=== PATIENT | male | born 1955 | race Caucasian/White ===

== ENCOUNTER 2018-05-07 09:04 | Inpatient (IN) | payer BC ==
[~2018-05-07] VITALS: Ht 188 cm; Wt 127.0 kg
[2018-05-07 09:19] VITALS: BP 151/97
[2018-05-07] MEDS ORDERED: CELEXA20 MG ORAL (09:24)
[2018-05-07] MEDS ORDERED: PROTONIX20 MG ORAL (09:24)
[2018-05-07] MEDS ORDERED: GABAPENTIN600 MG ORAL (09:24)
[2018-05-07] MEDS ORDERED: ASPIR 8181 MG ORAL (09:24)
[2018-05-07] MEDS ORDERED: METOPROLOL TART50 MG ORAL (09:24)
[2018-05-07] MEDS ORDERED: METFORMIN HCL1000 M1 ORAL (09:24)
[2018-05-07] MEDS ORDERED: AMLODIPINE BESY10 MG ORAL (09:24)
[2018-05-07] MEDS ORDERED: LISINOPRIL10 MG ORAL (09:24)
[2018-05-07] MEDS ORDERED: VITAMIN B-1100 MG ORAL (09:24)
[2018-05-07] MEDS ORDERED: IBUPROFEN600 MG ORAL (09:24)
[2018-05-07] MEDS ORDERED: DIPHENHYDRAMINE25 M1 ORAL (09:24)
[2018-05-07] MEDS ORDERED: MIRTAZAPINE15 M3 ORAL (09:24)
[2018-05-07] MEDS ORDERED: LIPITOR40 MG ORAL (09:24)
[2018-05-07] MEDS ORDERED: Nitroglycerin Subl 0.4mg tab SL PRN ×2 (09:30→11:45)
--- NOTE | 2018-05-07 09:32 | Emergency Room Report ---
History of Present Illness General Chief Complaint: Chest Pain Source: Patient Present Illness HPI 62 male c/o moderate to severe heavy substernal chest pressure basically all night~12-16 hours. This am also down left arm. Feels similar to [place] January 07, 2016 and pt. had CABG January 08, 2016. No significant cp since that time. Pt. has not been to [facility] in past. Currently in drug/alcohol rehab program. Meds: Metformin 1000 BID Amlodipine 10 daily Lipitor 40 daily Lisinopril 20 daily Metoprolol 25x3 BID Mirtazapine 15 qhs Pantoprazole 40 BID Aspirin 81 daily Citalopram 40 daily Gabapentin 600 qhs Benadryl 50 qhs Allergies: Coded Allergies: No Known Allergies (Unverified , 05/07/18) Nursing Documentation-[facility] Past Medical History: No History, Except For Hx Hypertension: Yes - high cholesterol Hx Diabetes: Yes Review of Systems Constitutional: Reports: no symptoms Eye: Reports: no symptoms ENT: Reports: no symptoms Respiratory: Reports: no symptoms Cardiovascular: Reports: see HPI, chest pain Gastrointestinal: Reports: no symptoms Genitourinary: Reports: no symptoms Musculoskeletal: Reports: no symptoms Skin: Reports: no symptoms Psychiatric: Reports: no symptoms Neurological: Reports: no symptoms Endocrine: Reports: no symptoms Hematologic/Lymphatic: Reports: no symptoms Allergic: Reports: no symptoms All Other Systems: negative except mentioned in HPI Physical Exam Vital Signs Date Time Temp Pulse Resp B/P (MAP) Pulse Ox O2 Delivery O2 Flow Rate FiO2 05/07/18 09:09 97.0 102 18 151/97 98 Room Air 97.0 Sp02 EP Interpretation: reviewed, normal General Appearance: normal inspection, no apparent distress, alert, GCS 15, moderate distress, obese Head: normocephalic, atraumatic Eyes: bilateral eye normal inspection, bilateral eye PERRL, bilateral eye EOMI ENT: normal ENT inspection, hearing grossly normal, normal pharynx, no angioedema, normal voice, moist mucus membranes Neck: normal inspection, full range of motion, supple, no meningismus, no bony tend Respiratory: normal inspection, lungs clear, normal breath sounds, no rhonchi, no respiratory distress, no retraction, no accessory muscle use, no wheezing Cardiovascular #1: normal inspection, regular rate, rhythm, no edema Gastrointestinal: normal inspection, normal bowel sounds, non tender, soft, no mass, non-distended Musculoskeletal: gait/station normal, normal range of motion Neurologic: normal inspection, alert, oriented x3, responsive, motor strength/ tone normal Psychiatric: normal inspection, judgement/insight normal, memory normal Suicide Risk Assessment: Suicidal Ideation: No Had intent to initiate attempt: No Pt's plan for suicide attempt: No Has means to complete attempt: No Skin: normal inspection, normal color, no rash, warm/dry Medical Decision Making Diagnostic Impression: Primary Impression: Chest pain ER Course 1030: no further cp at this time. Received one sl ntg., SBP ~100 after that. Medical Decision Making for Chest Pain This patient presents with signs and symptoms concerning for coronary ischemia. It is not possible to be 100% accurate about the etiology of the patient's chest pain at this time (after an ED evaluation.) The patient's YAQUELIN Score is: 4. The patient's HEART Score is: 5. YAQUELIN: age 65 years or older 0 at least 3 risk factors for coronary artery disease 1 prior coronary stenosis of 50% or more 1 ST-segment deviation on ECG at presentation 0 at least two anginal events in prior 24 hours 1 use of aspirin in the prior seven days 1 elevated serum cardiac biomarkers 0 HEART: (0-2 for five variables) History 2 EKG (ST depr = 1mm) 0 Age (45-65) 1 Risk Factors (1-2) 2 Troponin CRITICAL CARE NOTE: The patient was at risk for respiratory and cardiac failure and required aggressive intervention by me. Critical care time provided by me, excluding other separately billable procedures exceeded 35 minutes. This time included: Obtaining history from: patient, EMS, family, PMD Examination of the patient Development of treatment plan Ordering and reviewing diagnostic test results Discussion of treatment plan with advanced manufacturing consultant, PMD, patient, family Coordinating care with nursing and respiratory therapy Supervising IV medications Multiple reassessments Discussion with the admitting physician EKG Diagnostic Results EKG Time: 09:30 Rate: normal Rhythm: NSR ST Segments: no acute changes Other Impression NSR at 100, PRWP Rhythm Strip Diag. Results Rhythm Strip Time: 09:31 EP Interpretation: yes Rate: 101 Rhythm: NSR Chest X-Ray Diagnostic Results Chest X-Ray Diagnostic Results : Chest X-Ray Ordered: Yes # of Views/Limited/Complete: 1 View Indication: Chest Pain EP Interpretation: Yes Interpretation: no consolidation, no effusion, no pneumothorax, no acute cardiopulmonary disease Last Vital Signs Date Time Temp Pulse Resp B/P (MAP) Pulse Ox O2 Delivery O2 Flow Rate FiO2 05/07/18 09:09 97.0 102 18 151/97 98 Room Air 97.0 Disposition: ADMITTED INPATIENT Condition: Serious Pasquale Espinoza M.D. May 07, 2018 09:32
[2018-05-07] MEDS ORDERED: LORazepam Inj 2mg/ml 1ml IV ONE (09:45)
[2018-05-07 09:51] LABS: ANION GAP 9 mmol/L (5-15); BLOOD UREA NITROGEN 27 mg/dL (7-18); CALCIUM 9.9 MG/DL (8.5-10.1); CARBON DIOXIDE 25 MMOL/L (21-32); CHLORIDE 102 MMOL/L (98-107); CREATININE 1.1 MG/DL (0.55-1.30); POTASSIUM 4.9 MMOL/L (3.5-5.1); SODIUM 136 MMOL/L (136-145)
[2018-05-07 09:52] LABS: INR 0.9 (0.9-1.1)
[2018-05-07 10:02] LABS: ALANINE AMINOTRANSFERASE 42 U/L (12-78); ALBUMIN 4.3 G/DL (3.4-5.0); ALBUMIN/GLOBULIN RATIO 1.1 (1.0-2.7); ALKALINE PHOSPHATASE 86 U/L (46-116); ASPARTATE AMINO TRANSFERASE 18 U/L (15-37); BILIRUBIN,TOTAL 0.4 MG/DL (0.2-1.0)
[2018-05-07 10:04] LABS: BASOPHILS % (AUTO) 1.1 % (0.0-2.0); EOSINOPHILS % (AUTO) 1.7 % (0.0-3.0); HEMATOCRIT 47.1 % (42.0-52.0); HEMOGLOBIN 15.8 G/DL (14.2-18.0); LYMPHOCYTES % (AUTO) 31.3 % (20.0-45.0); MEAN CORPUSCULAR VOLUME 91 FL (80-99); MONOCYTES % (AUTO) 8.7 % (1.0-10.0); NEUTROPHILS % (AUTO) 57.2 % (45.0-75.0); PLATELET COUNT 326 K/UL (150-450); RED BLOOD COUNT 5.17 M/UL (4.70-6.10); RED CELL DISTRIBUTION WIDTH 10.7 % (11.6-14.8)
[2018-05-07 10:09] LABS: APPEARANCE,URINE CLEAR; BILIRUBIN, URINE NEGATIVE (NEGATIVE); COLOR,URINE PALE YELLOW; GLUCOSE, URINE (UA) 4+ (NEGATIVE); KETONES,URINE NEGATIVE (NEGATIVE); LEUKOCYTE ESTERASE ,URINE NEGATIVE (NEGATIVE); NITRITE,URINE NEGATIVE (NEGATIVE); PH,URINE 5 (4.5-8.0); PROTEIN,URINE NEGATIVE (NEGATIVE); UROBILINOGEN,URINE NORMAL MG/DL (0.0-1.0)
[2018-05-07] MEDS ORDERED: Morphine Sulfate 2mg/ml Inj IVP ONE (11:00)
[2018-05-07] MEDS ORDERED: Mylanta II UD 30ml ORAL ONE (11:00)
[2018-05-07] MEDS ORDERED: Lidocaine 2% Visc 15ml soln PO ONE (11:00)
--- NOTE | 2018-05-07 11:05 | Diagnostic Imaging Report ---
Indication: Chest pain Comparison: None A single view chest radiograph was obtained. Findings: No definite infiltrate or pulmonary vascular congestion identified. Sternotomy noted. The heart is enlarged. The aorta is mildly enlarged consistent with atherosclerotic vascular disease. The bones are osteopenic. Impression: No acute disease
[2018-05-07 11:25] VITALS: BP_SYST 104; BP_SYST 130; BP_DIAS 57; BP_DIAS 76
[2018-05-07] MEDS ORDERED: dilTIAZem HCl 25mg/5ml Inj IV PRN (11:45)
[2018-05-07] MEDS ORDERED: Albuterol/Ipratropium 3ml neb HHN PRN (11:45)
[2018-05-07] MEDS ORDERED: Ketorolac 30mg Inj IV PRN (11:45)
[2018-05-07] MEDS ORDERED: Enalaprilat 2.5mg/2ml Inj IV PRN (11:45)
[2018-05-07] MEDS ORDERED: Isovue-370 150ml vial INJ PRN (11:45)
[2018-05-07] MEDS ORDERED: Miralax 17gm pkt ORAL PRN (11:45)
--- NOTE | 2018-05-07 12:45 | Nephrology Progress Note ---
Assessment/Plan Plan [id number] full consult dictated Objective Objective Last 24 Hour Vital Signs Date Time Temp Pulse Resp B/P (MAP) Pulse Ox O2 Delivery O2 Flow Rate FiO2 05/07/18 11:37 98.7 05/07/18 11:25 98.7 89 15 130/76 97 Room Air 98.7 05/07/18 11:07 97.0 05/07/18 09:33 151/97 05/07/18 09:19 97.0 18 151/97 98 Room Air 97.0 05/07/18 09:19 102 18 Room Air 05/07/18 09:09 97.0 102 18 151/97 98 Room Air 97.0 Laboratory Tests 05/07/18 09:30: White Blood Count 9.0, Red Blood Count 5.17, Hemoglobin 15.8, Hematocrit 47.1, Mean Corpuscular Volume 91, Mean Corpuscular Hemoglobin 30.5, Mean Corpuscular Hemoglobin Concent 33.5, Red Cell Distribution Width 10.7L, Platelet Count 326, Mean Platelet Volume 5.6L, Neutrophils (%) (Auto) 57.2, Lymphocytes (%) (Auto) 31.3, Monocytes (%) (Auto) 8.7, Eosinophils (%) (Auto) 1.7, Basophils (%) (Auto ) 1.1, Prothrombin Time 9.7, Prothromb Time International Ratio 0.9, Sodium Level 136, Potassium Level 4.9, Chloride Level 102, Carbon Dioxide Level 25, Anion Gap 9, Blood Urea Nitrogen 27H, Creatinine 1.1, Estimat Glomerular Filtration Rate > 60, Glucose Level 163H, Calcium Level 9.9, Total Bilirubin 0.4 , Aspartate Amino Transf (AST/SGOT) 18, Alanine Aminotransferase (ALT/SGPT) 42, Alkaline Phosphatase 86, Troponin I 0.000, Pro-B-Type Natriuretic Peptide 60, Total Protein 8.2, Albumin 4.3, Globulin 3.9, Albumin/Globulin Ratio 1.1 05/07/18 10:00: Urine Color Pale yellow, Urine Appearance Clear, Urine pH 5, Urine Specific [place] 1.015, Urine Protein Negative, Urine Glucose (UA) 4+H, Urine Ketones Negative, Urine Blood Negative, Urine Nitrite Negative, Urine Bilirubin Negative , Urine Urobilinogen Normal, Urine Leukocyte Esterase Negative, Urine RBC 0, Urine WBC 0, Urine Squamous Epithelial Cells Occasional, Urine Bacteria None, Urine Opiates Screen Negative, Urine Barbiturates Screen Negative, Phencyclidine (PCP) Screen Negative, Urine Amphetamines Screen Negative, Urine Benzodiazepines Screen Negative, Urine Cocaine Screen Negative, Urine Marijuana (THC) Screen Negative Height (Feet): 6 Height (Inches): 2.00 Weight (Pounds): 280 Wendy Lu MD May 07, 2018 12:45
[2018-05-07] MEDS ORDERED: Aspirin EC 81mg tab ORAL SCH (13:00)
--- NOTE | 2018-05-07 13:01 | Consultation ---
History of Present Illness General Date patient seen: May 07, 2018 Chief Complaint: Chest Pain Present Illness HPI 62 male with hx of DM, CAD, CABG, ETOH abuse c/o moderate to severe heavy substernal chest pressure basically all night~12-16 hours. This am also down left arm.. Pt. has not been to [facility] in past. Currently in drug/alcohol rehab program. Pt is admitted to telemetry for ACS. Allergies: Coded Allergies: No Known Allergies (Unverified , 05/07/18) Medication History Scheduled Amlodipine Besylate* (Amlodipine Besylate*), 10 MG ORAL DAILY, (Reported) Aspirin* (Aspir 81*), 81 MG ORAL DAILY, (Reported) Atorvastatin Calcium* (Lipitor*), 40 MG ORAL BEDTIME, (Reported) Citalopram Hydrobromide* (Celexa*), 40 MG ORAL DAILY, (Reported) Gabapentin* (Gabapentin*), 600 MG ORAL HS, (Reported) Lisinopril* (Lisinopril*), 20 MG ORAL DAILY, (Reported) Metformin Hcl* (Metformin Hcl*), 1,000 MG ORAL BID, (Reported) Metoprolol Tartrate* (Metoprolol Tartrate*), 75 MG ORAL EVERY 12 HOURS, ( Reported) Mirtazapine* (Mirtazapine*), 15 MG ORAL BEDTIME, (Reported) Pantoprazole Sodium (Protonix), 40 MG ORAL EVERY 12 HOURS, (Reported) Thiamine Hcl* (Vitamin B-1*), 100 MG ORAL DAILY, (Reported) Scheduled PRN Diphenhydramine Hcl* (Diphenhydramine Hcl*), 50 MG ORAL HS PRN for Itching, ( Reported) Ibuprofen* (Motrin*), 200 MG ORAL Q6H PRN for For Pain, (Reported) Ibuprofen* (Motrin*), 800 MG ORAL Q6H PRN for For Pain, (Reported) Patient History Healthcare decision maker Resuscitation status Advanced Directive on File Past Medical/Surgical History Past Medical/Surgical History: (1) Hx of CABG (2) Hypertension (3) Diabetes mellitus Review of Systems All Other Systems: negative except mentioned in HPI Physical Exam General Appearance: WD/WN Lines, tubes and drains: peripheral HEENT: normocephalic, atraumatic Neck: non-tender, normal alignment Respiratory/Chest: chest wall non-tender, lungs clear Breasts: no masses Cardiovascular/Chest: normal peripheral pulses Abdomen: normal bowel sounds Extremities: normal range of motion Last 24 Hour Vital Signs Date Time Temp Pulse Resp B/P (MAP) Pulse Ox O2 Delivery O2 Flow Rate FiO2 05/07/18 11:37 98.7 05/07/18 11:25 98.7 89 15 130/76 97 Room Air 98.7 05/07/18 11:07 97.0 05/07/18 09:33 151/97 05/07/18 09:19 97.0 18 151/97 98 Room Air 97.0 05/07/18 09:19 102 18 Room Air 05/07/18 09:09 97.0 102 18 151/97 98 Room Air 97.0 Laboratory Tests Test 05/07/18 09:30 05/07/18 10:00 White Blood Count 9.0 K/UL (4.8-10.8) Red Blood Count 5.17 M/UL (4.70-6.10) Hemoglobin 15.8 G/DL (14.2-18.0) Hematocrit 47.1 % (42.0-52.0) Mean Corpuscular Volume 91 FL (80-99) Mean Corpuscular Hemoglobin 30.5 PG (27.0-31.0) Mean Corpuscular Hemoglobin Concent 33.5 G/DL (32.0-36.0) Red Cell Distribution Width 10.7 % (11.6-14.8) L Platelet Count 326 K/UL (150-450) Mean Platelet Volume 5.6 FL (6.5-10.1) L Neutrophils (%) (Auto) 57.2 % (45.0-75.0) Lymphocytes (%) (Auto) 31.3 % (20.0-45.0) Monocytes (%) (Auto) 8.7 % (1.0-10.0) Eosinophils (%) (Auto) 1.7 % (0.0-3.0) Basophils (%) (Auto) 1.1 % (0.0-2.0) Prothrombin Time 9.7 SEC (9.30-11.50) Prothromb Time International Ratio 0.9 (0.9-1.1) Sodium Level 136 MMOL/L (136-145) Potassium Level 4.9 MMOL/L (3.5-5.1) Chloride Level 102 MMOL/L (98-107) Carbon Dioxide Level 25 MMOL/L (21-32) Anion Gap 9 mmol/L (5-15) Blood Urea Nitrogen 27 mg/dL (7-18) H Creatinine 1.1 MG/DL (0.55-1.30) Estimat Glomerular Filtration Rate > 60 mL/min (>60) Glucose Level 163 MG/DL (74-106) H Calcium Level 9.9 MG/DL (8.5-10.1) Total Bilirubin 0.4 MG/DL (0.2-1.0) Aspartate Amino Transf (AST/SGOT) 18 U/L (15-37) Alanine Aminotransferase (ALT/SGPT) 42 U/L (12-78) Alkaline Phosphatase 86 U/L (46-116) Troponin I 0.000 ng/mL (0.000-0.056) Pro-B-Type Natriuretic Peptide 60 pg/mL (0-125) Total Protein 8.2 G/DL (6.4-8.2) Albumin 4.3 G/DL (3.4-5.0) Globulin 3.9 g/dL Albumin/Globulin Ratio 1.1 (1.0-2.7) Urine Color Pale yellow Urine Appearance Clear Urine pH 5 (4.5-8.0) Urine Specific [place] 1.015 (1.005-1.035) Urine Protein Negative (NEGATIVE) Urine Glucose (UA) 4+ (NEGATIVE) H Urine Ketones Negative (NEGATIVE) Urine Blood Negative (NEGATIVE) Urine Nitrite Negative (NEGATIVE) Urine Bilirubin Negative (NEGATIVE) Urine Urobilinogen Normal MG/DL (0.0-1.0) Urine Leukocyte Esterase Negative (NEGATIVE) Urine RBC 0 /HPF (0 - 0) Urine WBC 0 /HPF (0 - 0) Urine Squamous Epithelial Cells Occasional /LPF Urine Bacteria None /HPF (NONE) Urine Opiates Screen Negative (NEGATIVE) Urine Barbiturates Screen Negative (NEGATIVE) Phencyclidine (PCP) Screen Negative (NEGATIVE) Urine Amphetamines Screen Negative (NEGATIVE) Urine Benzodiazepines Screen Negative (NEGATIVE) Urine Cocaine Screen Negative (NEGATIVE) Urine Marijuana (THC) Screen Negative (NEGATIVE) Height (Feet): 6 Height (Inches): 2.00 Weight (Pounds): 280 Medications Current Medications Medications (Trade) Dose Ordered Sig/[place] Route PRN Reason Start Time Stop Time Status Last Admin Dose Admin Acetaminophen (Tylenol) 650 mg Q4H PRN ORAL FEVER 05/07/18 11:45 06/06/18 11:44 Albuterol/ Ipratropium (Albuterol/ Ipratropium) 3 ml Q4H PRN HHN Shortness of Breath 05/07/18 11:45 05/12/18 11:44 Amlodipine Besylate (Norvasc) 10 mg DAILY ORAL 05/08/18 09:00 06/07/18 08:59 Aspirin (Ecotrin) 81 mg DAILY ORAL 05/08/18 09:00 06/07/18 08:59 Aspirin (Ecotrin) 81 mg ONCE ORAL 05/07/18 13:00 05/07/18 14:00 05/07/18 12:55 Atorvastatin Calcium (Lipitor) 40 mg BEDTIME ORAL 05/07/18 21:00 06/06/18 20:59 Citalopram Hydrobromide (celeXA) 40 mg DAILY ORAL 05/08/18 09:00 06/07/18 08:59 Dextrose (Dextrose 50%) 25 ml STAT PRN IV Hypoglycemia 05/07/18 11:45 06/06/18 11:44 Dextrose (Dextrose 50%) 50 ml STAT PRN IV Hypoglycemia 05/07/18 11:45 06/06/18 11:44 Diltiazem HCl (Cardizem) 10 mg Q1H PRN IV heart rate more than 120, 05/07/18 11:45 06/06/18 11:44 Enalaprilat (Vasotec) 2.5 mg Q6H PRN IV sbp more than 160 05/07/18 11:45 06/06/18 11:44 Gabapentin (Neurontin) 600 mg EVERY 8 HOURS ORAL 05/07/18 14:00 06/06/18 13:59 Heparin Sodium (Porcine) (Heparin 5000 units/ml) 5,000 units EVERY 8 HOURS SUBQ 05/07/18 14:00 06/06/18 13:59 Insulin Aspart (NovoLOG) BEFORE MEALS AND HS SUBQ 05/07/18 16:30 06/06/18 16:29 Iopamidol (Isovue-370 150ml) 150 ml NOW PRN INJ Radiology Procedure 05/07/18 11:45 05/09/18 11:42 Ketorolac Tromethamine (Toradol 30mg) 30 mg Q6H PRN IV moderate pain ( 4-6) 05/07/18 11:45 05/12/18 11:44 Lisinopril (Prinivil) 20 mg DAILY ORAL 05/08/18 09:00 06/07/18 08:59 Metoprolol Tartrate (Lopressor) 75 mg EVERY 12 HOURS ORAL 05/07/18 21:00 06/06/18 20:59 Mirtazapine (Remeron) 15 mg BEDTIME ORAL 05/07/18 21:00 06/06/18 20:59 Morphine Sulfate (Morphine Sulfate) 2 mg Q4H PRN IVP severe Pain (Pain Scale 7-10) 05/07/18 11:45 05/14/18 11:44 Nitroglycerin (Ntg) 0.4 mg Q5M PRN SL Prn Chest Pain 05/07/18 11:45 06/06/18 11:44 Ondansetron HCl (Zofran) 4 mg Q6H PRN IVP Nausea & Vomiting 05/07/18 11:45 06/06/18 11:44 Pantoprazole (Protonix) 40 mg DAILY ORAL 05/08/18 09:00 06/07/18 08:59 Polyethylene Glycol (Miralax) 17 gm DAILYPRN PRN ORAL Constipation 05/07/18 11:45 06/06/18 11:44 Temazepam (Restoril) 15 mg HSPRN PRN ORAL Insomnia 05/07/18 11:45 05/14/18 11:44 Assessment/Plan Problem List: (1) ACS (acute coronary syndrome) ICD Codes: I24.9 - Acute ischemic heart disease, unspecified SNOMED: 388325696 (2) Costochondritis ICD Codes: M94.0 - Chondrocostal junction syndrome [[place]] SNOMED: 14692407 (3) Hypertension ICD Codes: I10 - Essential (primary) hypertension SNOMED: 18737052 (4) Hx of CABG ICD Codes: Z95.1 - Presence of aortocoronary bypass graft SNOMED: 238518674, 180182148 (5) Diabetes mellitus ICD Codes: E11.9 - Type 2 diabetes mellitus without complications SNOMED: 07788442 Assessment/Plan serial ekg, troponin, Echo sliding scale diabetic diet Cardio evaluation. Per Turcios MD May 07, 2018 13:01
[2018-05-07 13:30] VITALS: BP 132/80
[2018-05-07 13:47] VITALS: BP 116/76
--- NOTE | 2018-05-07 13:48 | Diagnostic Imaging Report ---
Indication: Chest pain Technique: Continuous helical transaxial imaging of the chest was obtained from the thoracic inlet to the upper abdomen during rapid intravenous contrast administration. Arterial phase of enhancement obtained. Coronal 2-D reformats were also obtained and maximum intensity projection images in multiple planes. Study obtained in a Siemens sensation [address] Automatic Exposure Control was utilized. Total Dose length Product (DLP): 1464.[address] Dose Index Volume (CTDIvol): 35.35 mGy Comparison: None Findings: The pulmonary artery is well opacified and shows no filling defects. There is no adenopathy, pleural or pericardial effusions are identified. There is no aortic dissection or aneurysm identified within the chest. The lungs show mild posterior basilar reticulation likely atelectasis. Visualized part of the upper abdomen is unremarkable. Impression: Negative CTA of the chest The CT scanner at [facility] is accredited by the [employer] and the scans are performed using dose optimization techniques as appropriate to a performed exam including Automatic Exposure control.
[2018-05-07] MEDS: Heparin 5000 units/ml inj SUBQ SCH ×2 (14:09→21:39)
[2018-05-07] MEDS: Morphine Sulfate 2mg/ml Inj IVP PRN ×3 (14:09→23:08)
--- NOTE | 2018-05-07 16:04 | Cardiology Report ---
APPROVED REPORT EXAM: Two-dimensional and M-mode echocardiogram with Doppler and color Doppler. INDICATION LV FUNCTION M-Mode DIMENSIONS IVSd1.3 (0.7-1.1cm)Left Atrium (MM)4.0 (1.6-4.0cm) LVDd2.4 (3.5-5.6cm)Aortic Root3.6 (2.0-3.7cm) PWd1.1 (0.7-1.1cm)Aortic Cusp Exc.2.0 (1.5-2.0cm) IVSs1.5 cm LVDs1.7 (2.5-4.0cm) PWs1.6 cm Technically difficult study due to poor acoustical windows . Normal left ventricular chamber size and LV systolic function to extent visualized.This study precludes full analysis of segmental wall motion. Left ventricular ejection fraction estimated to be 55%. No evidence of left ventricular hypertrophy. No evidence of pericardial effusion. All other cardiac chamber sizes are within normal limits. Focal aortic valve sclerosis with adequate cusp excursion. Thickened mitral valve leaflets with normal excursion. Mitral annulus and aortic root calcification. Pulmonic valve not well visualized. Normal tricuspid valve structure. IVC at normal size with physiologic collapse . A color flow and spectral Doppler study was performed and revealed: No aortic regurgitation. Trace mitral regurgitation. Normal left ventricular diastolic function. Trace tricuspid regurgitation. Trace pulmonic regurgitation present .
[2018-05-07] MEDS: NovoLOG Insulin Flexpen SUBQ SCH ×2 (16:34→20:54)
[2018-05-07] MEDS: LORazepam Inj 2mg/ml 1ml IV PRN ×2 (17:14→21:40)
[2018-05-07 20:00] VITALS: BP 107/67
--- NOTE | 2018-05-07 20:15 | Consultation ---
DATE OF CONSULTATION: 05/07/2018 NEPHROLOGY CONSULTATION CONSULTING PHYSICIAN: Wendy Lu M.D. REFERRING PHYSICIAN: Elliot Moran D.O. REASON FOR CONSULTATION: Abnormal electrolyte and possible diabetic nephropathy. HISTORY OF PRESENT ILLNESS: The patient is a 62-year-old, male with past medical history significant for history of diabetes, hypertension, history of diabetic neuropathy, history of CABG, history of OR, history of ETOH dependence. Apparently, the patient was at rehabilitation center while lying down, he started having stabbing chest pain, which was described as 10/10, was associated with nausea, vomiting, shortness of breath and diaphoresis. The patient last time that he saw his primary elevator inspector was in 2015 when he had CABG. The patient was brought into emergency room. In the ER, the patient was planned to be get admitted in the hospital. I was called for management of renal disease and electrolyte imbalance. PAST MEDICAL HISTORY: As mentioned above including 1. History of dyslipidemia. 2. Hypertension. 3. Diabetes. 4. Diabetic neuropathy. 5. CABG. 6. History of CAD. MEDICATIONS: Past medications at home are including 1. Metformin 1000 mg p.o. daily. 2. Amlodipine 10 mg p.o. daily. 3. Lipitor 40 mg p.o. daily. 4. Lisinopril 20 mg daily. 5. Metoprolol 25 mg p.o. b.i.d. 6. Mirtazapine 15 mg p.o. daily. 7. Protonix 40 mg b.i.d. 8. Aspirin 81 mg p.o. daily. 9. Gabapentin 600 mg p.o. at bedtime. 10. Benadryl 50 mg daily. ALLERGIES: No known drug allergies. SOCIAL HISTORY: Alcohol about 60 days ago, quit smoking many years ago. Denied any history of current tobacco, alcohol, or drug use. He is currently at rehabilitation [place]. He is originally from [place]. REVIEW OF SYSTEMS: GENERAL: He complained of generalized weakness. Denied any fever, chills, or night sweats. HEAD AND NECK: Denies any dysphagia, odynophagia, blurry vision, headache, or neck stiffness. PULMONARY: Mild shortness of breath. No cough or sputum. CARDIOVASCULAR: As mentioned in history of present illness. GASTROINTESTINAL: Complained of one nausea and vomiting in the morning. Denies any dysuria, frequency or hematuria. PHYSICAL EXAMINATION: VITAL SIGNS: The patient has temperature of 98 degrees, blood pressure of 150/97, pulse rate of 102, respiratory rate of 18. HEAD AND NECK: No JVP. No LAD. No thyromegaly. Extraocular movement intact. Pupils are reactive to light and accommodation. LUNGS: Clear to auscultation. CARDIAC: Regular rate and rhythm. S1 and S2. No murmur. No rub. ABDOMEN: Soft, nontender, and nondistended. EXTREMITIES: Trace edema. No clubbing or cyanosis. LABORATORY AND DIAGNOSTIC DATA: Sodium 136, potassium 4.9, chloride 102, bicarbonate 25, BUN of 27, creatinine of 1.1, and glucose of 163. Calcium of 9.9. AST of 18, ALT of 42, and alkaline phosphatase of 86. Troponin is negative. BNP is 60. Albumin of 4.3. CBC revealed WBC count of 9, hemoglobin of 15.8, hematocrit of 47 and platelet count of 326. PT, PTT and INR within normal limits. UA revealed specific gravity of 1.015, glucose 4+, no wbc's, and no rbc's. Urine toxicology was completely negative. ASSESSMENT: 1. Prerenal azotemia and dehydration. 2. Rule out diabetic nephropathy, which is unlikely since the patient does not have any protein in the urine. 3. Uncontrolled diabetes. 4. Acute coronary syndrome. 5. History of CABG. 6. Uncontrolled hypertension. PLAN: Plan for the patient to obtain a random urine protein creatinine ratio to calculate the proteinuria. Check the microalbumin level. Check the A1c, recommended for this patient is 6 to 7. Avoid any other nephrotoxics. Replace electrolytes as needed. I would like to thank, Dr. Elliot Moran, for allowing me to participate in the care of this patient. Wendy Lu M.D. DR: MARIE JOB#: [id number] CC:
[2018-05-07] MEDS: Atorvastatin 20mg tab ORAL SCH (20:50)
[2018-05-07] MEDS: Metoprolol Tartrate 50mg tab ORAL SCH (20:51)
--- NOTE | 2018-05-07 22:00 | History and Physical Report ---
DATE OF ADMISSION: 05/07/2018 TIME: 2 p.m. TMR TEACHER: 1. Per Turcios M.D. 2. Enrico Hernandez M.D. 3. Wendy Lu M.D. CHIEF COMPLAINT: Chest pain, shortness of breath, and hypertensive urgency. BRIEF HISTORY: This is a 62-year-old male, who lives at home, actually traveling in to [place] recently, had some chest pain yesterday, substernal, no radiation, and sharp . The patient is slightly short of breath, but no loss of consciousness. The patient came to [facility], diagnosed with the above, and admitted to telemetry for further care. Currently, calm in bed, slight chest pain, slight shortness of breath. No complaint. PAST MEDICAL HISTORY: Hypertension, diabetes, and obesity. PAST SURGICAL HISTORY: Coronary artery bypass graft. MEDICATIONS: Include Norvasc, Ecotrin, Celexa, Prinivil, Protonix, Lipitor, Lopressor, Remeron, NovoLog, Neurontin, albuterol, ketorolac, and Zofran. ALLERGIES: Denies. SOCIAL HISTORY: Positive smoking. Positive alcohol. No intravenous drug abuse. FAMILY HISTORY: Noncontributory. REVIEW OF SYSTEMS: Slight chest pain. Slight shortness of breath. No nausea, vomiting, or diarrhea. PHYSICAL EXAMINATION: GENERAL: Slightly anxious in bed, oriented x3, no acute distress. VITAL SIGNS: Temperature is 97 degrees, pulse 89, respirations 20, and blood pressure 116/76. CARDIOVASCULAR: No murmur. LUNGS: [place] and clear. ABDOMEN: Bowel sounds positive. Nontender and nondistended. EXTREMITIES: Show no cyanosis, clubbing, or edema. NEUROLOGIC: The patient moves all extremities, slightly weak. LABORATORY AND DIAGNOSTIC DATA: CBC is normal. BMP show BUN 27, glucose 163, and INR is 0.9. Urine tox is negative. Urinalysis show 4+ glucose. ASSESSMENT: 1. Chest pain. 2. Hypertensive urgency. 3. Diabetes. 4. Obesity. 5. Dehydration. 6. Shortness of breath. PLAN: 1. O2 and pulmonary treatment. 2. Blood pressure and blood sugar control. 3. Pain control. 4. Cardiology followup. 5. Resume home medications. 6. CBC and BMP in the morning. 7. Dr. Turcios, Dr. Hernandez, and Dr. Lu to consult. Elliot Moran D.O. DR: JAZLYN JOB#: [id number] CC:
[2018-05-08] VITALS: BP 105/64
[2018-05-08 04:00] VITALS: BP 100/53
[2018-05-08] MEDS: Morphine Sulfate 2mg/ml Inj IVP PRN ×3 (06:24→17:58)
[2018-05-08] MEDS: Heparin 5000 units/ml inj SUBQ SCH ×3 (06:26→21:34)
[2018-05-08] MEDS: NovoLOG Insulin Flexpen SUBQ SCH ×4 (06:27→21:03)
[2018-05-08 08:00] VITALS: BP 110/75
[2018-05-08] MEDS ORDERED: Metoprolol 25mg tab ONE (08:37)
[2018-05-08 08:59] LABS: BASOPHILS % (AUTO) 1.1 % (0.0-2.0); EOSINOPHILS % (AUTO) 3.4 % (0.0-3.0); HEMATOCRIT 44.6 % (42.0-52.0); HEMOGLOBIN 15.1 G/DL (14.2-18.0); LYMPHOCYTES % (AUTO) 36.6 % (20.0-45.0); MEAN CORPUSCULAR VOLUME 91 FL (80-99); MONOCYTES % (AUTO) 6.9 % (1.0-10.0); NEUTROPHILS % (AUTO) 52.1 % (45.0-75.0); PLATELET COUNT 293 K/UL (150-450); RED BLOOD COUNT 4.91 M/UL (4.70-6.10); RED CELL DISTRIBUTION WIDTH 10.8 % (11.6-14.8); WHITE BLOOD COUNT 8.7 K/UL (4.8-10.8)
[2018-05-08] MEDS ORDERED: Lisinopril 20mg tab ORAL SCH (09:00)
[2018-05-08] MEDS: Metoprolol Tartrate 50mg tab ORAL SCH (09:00)
[2018-05-08] MEDS: Citalopram Hydrobromide 10mg Tab ORAL SCH (09:00)
[2018-05-08] MEDS ORDERED: Aspirin Baby 81mg ORAL SCH (09:00)
[2018-05-08] MEDS: Aspirin EC 81mg tab ORAL SCH (09:01)
[2018-05-08] MEDS: LORazepam Inj 2mg/ml 1ml IV PRN ×3 (09:14→21:05)
[2018-05-08 09:20] LABS: ANION GAP 6 mmol/L (5-15); BLOOD UREA NITROGEN 24 mg/dL (7-18); CALCIUM 9.5 MG/DL (8.5-10.1); CARBON DIOXIDE 26 MMOL/L (21-32); CHLORIDE 103 MMOL/L (98-107); CREATININE 1.1 MG/DL (0.55-1.30); POTASSIUM 4.9 MMOL/L (3.5-5.1); SODIUM 135 MMOL/L (136-145)
[2018-05-08 09:32] LABS: CHOLESTEROL 94 MG/DL (< 200); HDL CHOLESTEROL 39 MG/DL (40-60); TRIGLYCERIDES 97 MG/DL (30-150)
--- NOTE | 2018-05-08 10:17 | Nephrology Progress Note ---
Assessment/Plan Assessment 1. Prerenal azotemia and dehydration. 2. Rule out diabetic nephropathy, which is unlikely since the patient does not have any protein in the urine. 3. Uncontrolled diabetes. 4. Acute coronary syndrome. 5. History of CABG. 6. Uncontrolled hypertension. Plan continue current medication monitoring renal function avoid NSAID replace electrolyte as need it Subjective Constitutional: Reports: malaise, weakness HEENT: Reports: no symptoms Genitourinary: Reports: no symptoms Neurologic/Psychiatric: Reports: no symptoms Subjective continue to have CP 04/18 ,radiate to left arm ,and no relieving factor Objective Objective Last 24 Hour Vital Signs Date Time Temp Pulse Resp B/P (MAP) Pulse Ox O2 Delivery O2 Flow Rate FiO2 05/08/18 09:01 110/75 05/08/18 09:01 71 110/75 05/08/18 09:00 71 110/75 05/08/18 08:00 97.1 71 20 110/75 (87) 95 97.1 05/08/18 04:00 68 05/08/18 04:00 97.0 68 20 100/53 (69) 95 97.0 05/08/18 00:00 67 05/08/18 00:00 97.0 71 20 105/64 (78) 95 97.0 05/07/18 21:00 Room Air 05/07/18 20:51 84 113/69 05/07/18 20:00 88 05/07/18 20:00 97.7 85 20 107/67 (80) 97 97.7 05/07/18 20:00 87 20 Room Air 05/07/18 19:10 97.7 05/07/18 18:40 97.7 05/07/18 15:16 83 05/07/18 14:09 97.7 05/07/18 13:53 Room Air 05/07/18 13:47 97.7 89 20 116/76 (89) 93 97.7 05/07/18 13:30 98.5 75 20 132/80 98 Room Air 98.7 05/07/18 13:30 98.5 75 20 132/80 98 Room Air 98.5 05/07/18 11:37 98.7 05/07/18 11:25 98.7 89 15 130/76 97 Room Air 98.7 05/07/18 11:07 97.0 Intake and Output 05/07/18 05/08/18 19:00 07:00 Intake Total 480 ml 500 ml Balance 480 ml 500 ml Intake Oral 480 ml 500 ml # Voids 2 Laboratory Tests 05/08/18 08:40: White Blood Count 8.7, Red Blood Count 4.91, Hemoglobin 15.1, Hematocrit 44.6, Mean Corpuscular Volume 91, Mean Corpuscular Hemoglobin 30.7, Mean Corpuscular Hemoglobin Concent 33.8, Red Cell Distribution Width 10.8L, Platelet Count 293, Mean Platelet Volume 6.2L, Neutrophils (%) (Auto) 52.1, Lymphocytes (%) (Auto) 36.6, Monocytes (%) (Auto) 6.9, Eosinophils (%) (Auto) 3.4H, Basophils (%) (Auto ) 1.1, Prothrombin Time 10.2, Prothromb Time International Ratio 1.0, Activated Partial Thromboplast Time 28, Sodium Level 135L, Potassium Level 4.9, Chloride Level 103, Carbon Dioxide Level 26, Anion Gap 6, Blood Urea Nitrogen 24H, Creatinine 1.1, Estimat Glomerular Filtration Rate > 60, Glucose Level 236H, Calcium Level 9.5, Troponin I 0.000, C-Reactive Protein, Quantitative < 0.4, Triglycerides Level 97, Cholesterol Level 94, LDL Cholesterol 45, HDL Cholesterol 39L, Cholesterol/HDL Ratio 2.4L, Thyroid Stimulating Hormone (TSH) 2.068 Height (Feet): 6 Height (Inches): 2.00 Weight (Pounds): 280 Objective HEAD AND NECK: No JVP. No LAD. No thyromegaly. Extraocular movement intact. Pupils are reactive to light and accommodation. LUNGS: Clear to auscultation. CARDIAC: Regular rate and rhythm. S1 and S2. No murmur. No rub. ABDOMEN: Soft, nontender, and nondistended. EXTREMITIES: Trace edema. No clubbing or cyanosis. Wendy Lu MD May 08, 2018 10:17
[2018-05-08 12:00] VITALS: BP 117/64
--- NOTE | 2018-05-08 13:10 | Pulmonology Progress Note ---
Assessment/Plan Problems: (1) ACS (acute coronary syndrome) (2) Costochondritis (3) Hypertension (4) Hx of CABG (5) Diabetes mellitus Assessment/Plan f/u troponin, ekg echocardiogram awaiting cardiology consult f/u electrolytes, renal evaluation in process sliding scale dvt prophylaxis. Subjective ROS Limited/Unobtainable: No Constitutional: Reports: no symptoms HEENT: Repors: no symptoms Respiratory: Reports: no symptoms Allergies: Coded Allergies: No Known Allergies (Unverified , 05/07/18) Objective Last 24 Hour Vital Signs Date Time Temp Pulse Resp B/P (MAP) Pulse Ox O2 Delivery O2 Flow Rate FiO2 05/08/18 09:01 110/75 05/08/18 09:01 71 110/75 05/08/18 09:00 71 110/75 05/08/18 09:00 Room Air 05/08/18 08:00 97.1 71 20 110/75 (87) 95 97.1 05/08/18 04:00 68 05/08/18 04:00 97.0 68 20 100/53 (69) 95 97.0 05/08/18 00:00 67 05/08/18 00:00 97.0 71 20 105/64 (78) 95 97.0 05/07/18 21:00 Room Air 05/07/18 20:51 84 113/69 05/07/18 20:00 88 05/07/18 20:00 97.7 85 20 107/67 (80) 97 97.7 05/07/18 20:00 87 20 Room Air 05/07/18 19:10 97.7 05/07/18 18:40 97.7 05/07/18 15:16 83 05/07/18 14:09 97.7 05/07/18 13:53 Room Air 05/07/18 13:47 97.7 89 20 116/76 (89) 93 97.7 05/07/18 13:30 98.5 75 20 132/80 98 Room Air 98.7 05/07/18 13:30 98.5 75 20 132/80 98 Room Air 98.5 Intake and Output 05/07/18 05/08/18 19:00 07:00 Intake Total 480 ml 500 ml Balance 480 ml 500 ml Intake Oral 480 ml 500 ml # Voids 2 General Appearance: WD/WN HEENT: normocephalic, atraumatic Respiratory/Chest: chest wall non-tender, lungs clear Cardiovascular: normal peripheral pulses, regular rhythm Abdomen: normal bowel sounds, non distended Extremities: no cyanosis 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 Laboratory Tests 05/08/18 08:40: White Blood Count 8.7, Red Blood Count 4.91, Hemoglobin 15.1, Hematocrit 44.6, Mean Corpuscular Volume 91, Mean Corpuscular Hemoglobin 30.7, Mean Corpuscular Hemoglobin Concent 33.8, Red Cell Distribution Width 10.8L, Platelet Count 293, Mean Platelet Volume 6.2L, Neutrophils (%) (Auto) 52.1, Lymphocytes (%) (Auto) 36.6, Monocytes (%) (Auto) 6.9, Eosinophils (%) (Auto) 3.4H, Basophils (%) (Auto ) 1.1, Prothrombin Time 10.2, Prothromb Time International Ratio 1.0, Activated Partial Thromboplast Time 28, Sodium Level 135L, Potassium Level 4.9, Chloride Level 103, Carbon Dioxide Level 26, Anion Gap 6, Blood Urea Nitrogen 24H, Creatinine 1.1, Estimat Glomerular Filtration Rate > 60, Glucose Level 236H, Calcium Level 9.5, Troponin I 0.000, C-Reactive Protein, Quantitative < 0.4, Triglycerides Level 97, Cholesterol Level 94, LDL Cholesterol 45, HDL Cholesterol 39L, Cholesterol/HDL Ratio 2.4L, Thyroid Stimulating Hormone (TSH) 2.068 Current Medications Medications (Trade) Dose Ordered Sig/Wilmar Route PRN Reason Start Time Stop Time Status Last Admin Dose Admin Acetaminophen (Tylenol) 650 mg Q4H PRN ORAL FEVER 05/07/18 11:45 06/06/18 11:44 Albuterol/ Ipratropium (Albuterol/ Ipratropium) 3 ml Q4H PRN HHN Shortness of Breath 05/07/18 11:45 05/12/18 11:44 Amlodipine Besylate (Norvasc) 10 mg DAILY ORAL 05/08/18 09:00 06/07/18 08:59 05/08/18 09:01 Aspirin (Ecotrin) 81 mg DAILY ORAL 05/08/18 09:00 06/07/18 08:59 05/08/18 09:01 Atorvastatin Calcium (Lipitor) 40 mg BEDTIME ORAL 05/07/18 21:00 06/06/18 20:59 05/07/18 20:50 Citalopram Hydrobromide (celeXA) 40 mg DAILY ORAL 05/08/18 09:00 06/07/18 08:59 05/08/18 09:00 Dextrose (Dextrose 50%) 25 ml STAT PRN IV Hypoglycemia 05/07/18 11:45 06/06/18 11:44 Dextrose (Dextrose 50%) 50 ml STAT PRN IV Hypoglycemia 05/07/18 11:45 06/06/18 11:44 Diltiazem HCl (Cardizem) 10 mg Q1H PRN IV heart rate more than 120, 05/07/18 11:45 06/06/18 11:44 Enalaprilat (Vasotec) 2.5 mg Q6H PRN IV sbp more than 160 05/07/18 11:45 06/06/18 11:44 Gabapentin (Neurontin) 600 mg EVERY 8 HOURS ORAL 05/07/18 14:00 06/06/18 13:59 05/08/18 06:24 Heparin Sodium (Porcine) (Heparin 5000 units/ml) 5,000 units EVERY 8 HOURS SUBQ 05/07/18 14:00 06/06/18 13:59 05/08/18 06:26 Insulin Aspart (NovoLOG) BEFORE MEALS AND HS SUBQ 05/07/18 16:30 06/06/18 16:29 05/08/18 06:27 Iopamidol (Isovue-370 150ml) 150 ml NOW PRN INJ Radiology Procedure 05/07/18 11:45 05/09/18 11:42 Ketorolac Tromethamine (Toradol 30mg) 30 mg Q6H PRN IV moderate pain ( 4-6) 05/07/18 11:45 05/12/18 11:44 Lisinopril (Prinivil) 20 mg DAILY ORAL 05/08/18 09:00 06/07/18 08:59 05/08/18 09:01 Lorazepam (Ativan 2mg/ml 1ml) 1 mg Q4H PRN IV For Anxiety 05/07/18 17:04 05/14/18 17:03 05/08/18 09:14 Metoprolol Tartrate (Lopressor) 75 mg EVERY 12 HOURS ORAL 05/07/18 21:00 06/06/18 20:59 05/07/18 20:51 Mirtazapine (Remeron) 15 mg BEDTIME ORAL 05/07/18 21:00 06/06/18 20:59 05/07/18 20:52 Morphine Sulfate (Morphine Sulfate) 2 mg Q4H PRN IVP severe Pain (Pain Scale 7-10) 05/07/18 11:45 05/14/18 11:44 05/08/18 12:22 Nitroglycerin (Ntg) 0.4 mg Q5M PRN SL Prn Chest Pain 05/07/18 11:45 06/06/18 11:44 Ondansetron HCl (Zofran) 4 mg Q6H PRN IVP Nausea & Vomiting 05/07/18 11:45 06/06/18 11:44 Pantoprazole (Protonix) 40 mg DAILY ORAL 05/08/18 09:00 06/07/18 08:59 05/08/18 09:01 Polyethylene Glycol (Miralax) 17 gm DAILYPRN PRN ORAL Constipation 05/07/18 11:45 06/06/18 11:44 Temazepam (Restoril) 15 mg HSPRN PRN ORAL Insomnia 05/07/18 11:45 05/14/18 11:44 Per Turcios MD May 08, 2018 13:10
--- NOTE | 2018-05-08 13:58 | Diagnostic Imaging Report ---
APPROVED REPORT CPT Code: 36561 Present Symptoms Comments: Chest Pain BILATERAL: Imaging reveals a patent deep venous system bilaterally. There is no evidence of thrombus within the femoral, popliteal or tibial segments. The greater saphenous veins are also within normal limits. Doppler indicates normal spontaneous flow within these segments.
--- NOTE | 2018-05-08 15:09 | General Progress Note ---
Assessment/Plan Problem List: (1) SOB (shortness of breath) ICD Codes: R06.02 - Shortness of breath SNOMED: 235208752 (2) Diabetes ICD Codes: E11.9 - Type 2 diabetes mellitus without complications SNOMED: 80878995 (3) Obese ICD Codes: E66.9 - Obesity, unspecified SNOMED: 812808017, 712665976 (4) ACS (acute coronary syndrome) ICD Codes: I24.9 - Acute ischemic heart disease, unspecified SNOMED: 719414559 (5) Diabetes mellitus ICD Codes: E11.9 - Type 2 diabetes mellitus without complications SNOMED: 24098522 (6) Hypertension ICD Codes: I10 - Essential (primary) hypertension SNOMED: 47224598 (7) Chest pain ICD Codes: R07.9 - Chest pain, unspecified SNOMED: 00867060 Status: unchanged Assessment/Plan bp bs pain control cbc bmp am Subjective Constitutional: Reports: weakness Allergies: Coded Allergies: No Known Allergies (Unverified , 05/07/18) All Systems: reviewed and negative except above Subjective sl cp Objective Last 24 Hour Vital Signs Date Time Temp Pulse Resp B/P (MAP) Pulse Ox O2 Delivery O2 Flow Rate FiO2 05/08/18 13:02 97.1 05/08/18 12:00 97.3 74 20 117/64 (81) 93 97.3 05/08/18 09:01 110/75 05/08/18 09:01 71 110/75 05/08/18 09:00 71 110/75 05/08/18 09:00 Room Air 05/08/18 08:15 91 20 Room Air 05/08/18 08:00 97.1 71 20 110/75 (87) 95 97.1 05/08/18 04:00 68 05/08/18 04:00 97.0 68 20 100/53 (69) 95 97.0 05/08/18 00:00 67 05/08/18 00:00 97.0 71 20 105/64 (78) 95 97.0 05/07/18 21:00 Room Air 05/07/18 20:51 84 113/69 05/07/18 20:00 88 05/07/18 20:00 97.7 85 20 107/67 (80) 97 97.7 8/29/18 20:00 87 20 Room Air 05/07/18 18:40 97.7 05/07/18 15:16 83 Intake and Output 05/07/18 05/08/18 19:00 07:00 Intake Total 480 ml 500 ml Balance 480 ml 500 ml Intake Oral 480 ml 500 ml # Voids 2 Laboratory Tests 05/08/18 08:40: White Blood Count 8.7, Red Blood Count 4.91, Hemoglobin 15.1, Hematocrit 44.6, Mean Corpuscular Volume 91, Mean Corpuscular Hemoglobin 30.7, Mean Corpuscular Hemoglobin Concent 33.8, Red Cell Distribution Width 10.8L, Platelet Count 293, Mean Platelet Volume 6.2L, Neutrophils (%) (Auto) 52.1, Lymphocytes (%) (Auto) 36.6, Monocytes (%) (Auto) 6.9, Eosinophils (%) (Auto) 3.4H, Basophils (%) (Auto ) 1.1, Prothrombin Time 10.2, Prothromb Time International Ratio 1.0, Activated Partial Thromboplast Time 28, Sodium Level 135L, Potassium Level 4.9, Chloride Level 103, Carbon Dioxide Level 26, Anion Gap 6, Blood Urea Nitrogen 24H, Creatinine 1.1, Estimat Glomerular Filtration Rate > 60, Glucose Level 236H, Calcium Level 9.5, Troponin I 0.000, C-Reactive Protein, Quantitative < 0.4, Triglycerides Level 97, Cholesterol Level 94, LDL Cholesterol 45, HDL Cholesterol 39L, Cholesterol/HDL Ratio 2.4L, Thyroid Stimulating Hormone (TSH) 2.068 Height (Feet): 6 Height (Inches): 2.00 Weight (Pounds): 280 General Appearance: alert EENT: normal ENT inspection Neck: normal alignment Cardiovascular: normal peripheral pulses, normal rate, regular rhythm Respiratory/Chest: chest wall non-tender, lungs clear, normal breath sounds Abdomen: normal bowel sounds, non tender, soft Extremities: normal inspection Edema: no edema noted Arm (L), no edema noted Arm (R), no edema noted Leg (L), no edema noted Leg (R), no edema noted Pedal (L), no edema noted Pedal (R), no edema noted Generalized Neurologic: responsive, motor weakness Skin: normal pigmentation, warm/dry Elliot Moran DO May 08, 2018 15:08
[2018-05-08 16:00] VITALS: BP 113/56
--- NOTE | 2018-05-08 18:33 | Cardiology Progress Note ---
Assessment/Plan Assessment/Plan The patient is seen and examined, full consultation note will be dictated. Objective Last 24 Hour Vital Signs Date Time Temp Pulse Resp B/P (MAP) Pulse Ox O2 Delivery O2 Flow Rate FiO2 05/08/18 18:31 97.3 05/08/18 17:58 97.3 05/08/18 16:30 79 05/08/18 16:00 97.3 77 20 113/56 (75) 90 97.3 05/08/18 12:00 97.3 74 20 117/64 (81) 93 97.3 05/08/18 12:00 80 05/08/18 09:01 110/75 05/08/18 09:01 71 110/75 05/08/18 09:00 71 110/75 05/08/18 09:00 Room Air 05/08/18 08:15 91 20 Room Air 05/08/18 08:00 97.1 71 20 110/75 (87) 95 97.1 05/08/18 08:00 73 05/08/18 04:00 68 05/08/18 04:00 97.0 68 20 100/53 (69) 95 97.0 05/08/18 00:00 67 05/08/18 00:00 97.0 71 20 105/64 (78) 95 97.0 05/07/18 21:00 Room Air 05/07/18 20:51 84 113/69 05/07/18 20:00 88 05/07/18 20:00 97.7 85 20 107/67 (80) 97 97.7 05/07/18 20:00 87 20 Room Air 05/07/18 18:40 97.7 Intake and Output 05/07/18 05/08/18 19:00 07:00 Intake Total 480 ml 500 ml Balance 480 ml 500 ml Intake Oral 480 ml 500 ml # Voids 2 Laboratory Tests Test 05/08/18 08:40 White Blood Count 8.7 K/UL (4.8-10.8) Red Blood Count 4.91 M/UL (4.70-6.10) Hemoglobin 15.1 G/DL (14.2-18.0) Hematocrit 44.6 % (42.0-52.0) Mean Corpuscular Volume 91 FL (80-99) Mean Corpuscular Hemoglobin 30.7 PG (27.0-31.0) Mean Corpuscular Hemoglobin Concent 33.8 G/DL (32.0-36.0) Red Cell Distribution Width 10.8 % (11.6-14.8) L Platelet Count 293 K/UL (150-450) Mean Platelet Volume 6.2 FL (6.5-10.1) L Neutrophils (%) (Auto) 52.1 % (45.0-75.0) Lymphocytes (%) (Auto) 36.6 % (20.0-45.0) Monocytes (%) (Auto) 6.9 % (1.0-10.0) Eosinophils (%) (Auto) 3.4 % (0.0-3.0) H Basophils (%) (Auto) 1.1 % (0.0-2.0) Prothrombin Time 10.2 SEC (9.30-11.50) Prothromb Time International Ratio 1.0 (0.9-1.1) Activated Partial Thromboplast Time 28 SEC (23-33) Sodium Level 135 MMOL/L (136-145) L Potassium Level 4.9 MMOL/L (3.5-5.1) Chloride Level 103 MMOL/L (98-107) Carbon Dioxide Level 26 MMOL/L (21-32) Anion Gap 6 mmol/L (5-15) Blood Urea Nitrogen 24 mg/dL (7-18) H Creatinine 1.1 MG/DL (0.55-1.30) Estimat Glomerular Filtration Rate > 60 mL/min (>60) Glucose Level 236 MG/DL (74-106) H Calcium Level 9.5 MG/DL (8.5-10.1) Troponin I 0.000 ng/mL (0.000-0.056) C-Reactive Protein, Quantitative < 0.4 mg/dL (0.00-0.90) Triglycerides Level 97 MG/DL (30-150) Cholesterol Level 94 MG/DL (< 200) LDL Cholesterol 45 mg/dL (<100) HDL Cholesterol 39 MG/DL (40-60) L Cholesterol/HDL Ratio 2.4 (3.3-4.4) L Thyroid Stimulating Hormone (TSH) 2.068 uiU/mL (0.358-3.740) Enrico Hernandez MD May 08, 2018 18:33
[2018-05-08 20:00] VITALS: BP 121/81
[2018-05-08] MEDS: Atorvastatin 20mg tab ORAL SCH (21:02)
--- NOTE | 2018-05-08 23:39 | Cardiology Report ---
APPROVED REPORT EKG Measurement Heart [id number] Normal sinus rhythm Cannot rule out Anterior infarct, age undetermined Abnormal ECG
[2018-05-09] VITALS: BP 120/80
--- NOTE | 2018-05-09 00:30 | Consultation ---
DATE OF CONSULTATION: 05/08/2018 CARDIOLOGY CONSULTATION CONSULTING PHYSICIAN: Enrico Hernandez M.D. REFERRING PHYSICIAN: Elliot Moran D.O. REASON FOR CONSULTATION: Management of chest pain. HISTORY OF PRESENT ILLNESS: The patient is a very unfortunate 62-year-old gentleman with prior history of triple vessel coronary artery bypass graft surgery following the myocardial infarction that occurred in 2016 in [place], history of hypertension, diabetes mellitus, history of tobacco use and hyperlipidemia who presents to the hospital after an acute onset of chest pain and characterizes midsternal chest pain that occurred during sleep, lasted for about 12 hours before he decided to come to the hospital. The pain radiated to the left arm, was associated with shortness of breath, but no nausea, vomiting, or diaphoresis. The patient has been off alcohol and joining rehabilitation program for 6-7 days. At the time of arrival to the hospital, a 12-lead electrocardiogram showed sinus tachycardia. No acute ST and T-wave abnormalities. The patient recently started on CPAP mask and was wondered whether the above symptoms are due to CPAP mask. Initial acute myocardial infarction is ruled out negative cardiac enzymes. PAST MEDICAL HISTORY: 1. Diabetes mellitus. 2. Hypertension. 3. Multivessel coronary artery disease, status post triple vessel coronary artery bypass graft surgery in 2016 at [place]. 4. Hyperlipidemia. 5. Obesity. 6. Depression. 7. GERD. PAST SURGICAL HISTORY: Coronary artery bypass graft surgery. MEDICATIONS: Metformin 1000 mg p.o. twice daily, amlodipine 10 mg p.o. daily, atorvastatin 40 mg p.o. at bedtime, lisinopril 10 mg p.o. daily, metoprolol 25 mg 3 tablets twice daily, mirtazapine 15 mg p.o. at bedtime, pantoprazole 40 mg twice daily, aspirin 81 mg p.o. daily, citalopram 40 mg p.o. daily, gabapentin 600 mg at bedtime, and Benadryl 50 mg p.o. at bedtime. ALLERGIES: No known drug allergies. FAMILY HISTORY: No premature coronary artery disease in first-degree relatives. REVIEW OF SYSTEMS: HEENT: Denies any headache, diplopia, or blurred vision. CONSTITUTIONAL: Denies any fever, chills, night sweats, or weight loss. CARDIOVASCULAR: Complains about chest pain as mentioned above. He has shortness of breath with regular activities. Denies any PND, orthopnea or lower extremity swelling; however, he complains of swelling of both hands. Denies any loss of consciousness or palpitations. PULMONARY: Denies any cough, hemoptysis, or wheezing. GASTROINTESTINAL: Denies any nausea, vomiting, diarrhea, constipation, abdominal pain, or GI bleed. GENITOURINARY: Denies any hematuria, dysuria, or incontinence. NEUROLOGY: Denies any motor dysfunction, sensory deficit, or altered speech. PHYSICAL EXAMINATION: GENERAL: The patient is a very unfortunate 62-year-old gentleman, who is in no apparent respiratory distress. Alert and oriented x4. VITAL SIGNS: Blood pressure was 151/97, respirations of 18, pulse of 102, temperature 97.0 degrees Fahrenheit, and O2 saturation of 98% on room air. HEENT: Atraumatic and normocephalic. ENT, pupils are equal, round, and reactive to light and accommodation. Extraocular muscles intact. Dry mucosal membranes. CARDIOVASCULAR: Normal S1 and S2. Regular rate and rhythm. Tachycardic. No murmurs, gallops, or rubs. PMI is at fourth intercostal space in the midclavicular line. LUNGS: Clear to auscultation bilaterally. ABDOMEN: Soft, nontender, nondistended. No hepatosplenomegaly. Positive bowel sounds. EXTREMITIES: No evidence of edema, clubbing, or cyanosis. LABORATORY AND DIAGNOSTIC DATA: WBC 9.0, hemoglobin 15.8, hematocrit of 47.1, and platelet count is 326. Sodium 136, potassium is 4.9, chloride is 102, bicarbonate 25, BUN of 27, creatinine 1.1, glucose is 163 and calcium is 9.9. Troponin I x2 negative. C-reactive protein less than 0.4. ProBNP was 60. Triglyceride 97, total cholesterol 94, LDL is 45, and HDL of 39. INR is 0.9. Toxicology was negative. Chest x-ray showed sternal wire, enlarged heart, mildly dilated aorta because of atherosclerosis and vascular disease and osteopenia. A 2D echocardiography is reviewed, it shows normal LV systolic function with LVEF approximately 55% to 60%. No wall motion abnormalities. Trace mitral regurgitation. Normal LV diastolic function and normal right ventricular systolic pressure. ASSESSMENT AND PLAN: The patient is a very unfortunate 62-year-old gentleman, seen in Cardiology consultation at request of Dr. Moran. The patient is in no apparent respiratory distress. Chest pain is currently subsided. 1. Atypical chest pain. The characteristics of pain is not suggestive of ischemic heart disease given the fact that the chest pain is for about 12 hours, troponin I level are within normal limits. Therefore, acute myocardial infarction is ruled out. A 2D echocardiography does not show any wall motion abnormalities. In view of prior history of CAD and triple vessel coronary artery bypass graft surgery, we will proceed with a pharmacological stress Cardiolite test to rule out obstructive CAD. In the meantime, the patient will continue the current medication. 2. Sinus tachycardia. No ST and T-wave abnormalities. Acute myocardial infarction is ruled out, this could be due to hypovolemia, as there were some signs of contraction alkalosis and prerenal azotemia on the chemistry at the time of arrival. 3. History of diabetes mellitus. The patient will continue on aspirin and statins. 4. History of hypertension. Blood pressure is well controlled with current medication. We will continue amlodipine, lisinopril, and metoprolol. I would like to thank, Dr. Ochoa for allowing me to participate in the care of this patient. Enrico Hernandez M.D. DR: KAMERON JOB#: [id number] CC:
[2018-05-09] MEDS: Morphine Sulfate 2mg/ml Inj IVP PRN ×5 (01:21→21:34)
[2018-05-09 04:00] VITALS: BP 117/78
[2018-05-09] MEDS: Heparin 5000 units/ml inj SUBQ SCH ×3 (05:57→21:17)
[2018-05-09] MEDS: NovoLOG Insulin Flexpen SUBQ SCH ×4 (06:04→22:36)
[2018-05-09 07:46] LABS: BASOPHILS % (AUTO) 1.1 % (0.0-2.0); EOSINOPHILS % (AUTO) 3.3 % (0.0-3.0); HEMATOCRIT 46.7 % (42.0-52.0); HEMOGLOBIN 16.7 G/DL (14.2-18.0); MEAN CORPUSCULAR VOLUME 90 FL (80-99); MONOCYTES % (AUTO) 7.7 % (1.0-10.0); NEUTROPHILS % (AUTO) 52.9 % (45.0-75.0); PLATELET COUNT 321 K/UL (150-450); RED BLOOD COUNT 5.17 M/UL (4.70-6.10); RED CELL DISTRIBUTION WIDTH 10.8 % (11.6-14.8); WHITE BLOOD COUNT 9.3 K/UL (4.8-10.8)
[2018-05-09 07:59] LABS: ANION GAP 10 mmol/L (5-15); BLOOD UREA NITROGEN 27 mg/dL (7-18); CALCIUM 9.4 MG/DL (8.5-10.1); CARBON DIOXIDE 25 MMOL/L (21-32); CHLORIDE 104 MMOL/L (98-107); POTASSIUM 4.7 MMOL/L (3.5-5.1); SODIUM 138 MMOL/L (136-145)
[2018-05-09 08:00] VITALS: BP 132/86
[2018-05-09] MEDS: Lisinopril 20mg tab ORAL SCH ×2 (08:54→17:31)
[2018-05-09] MEDS: Citalopram Hydrobromide 10mg Tab ORAL SCH (08:54)
[2018-05-09] MEDS: Aspirin EC 81mg tab ORAL SCH (08:54)
[2018-05-09] MEDS: LORazepam Inj 2mg/ml 1ml IV PRN ×2 (09:45→16:24)
--- NOTE | 2018-05-09 11:49 | Pulmonology Progress Note ---
Assessment/Plan Problems: (1) ACS (acute coronary syndrome) (2) Costochondritis (3) Hypertension (4) Hx of CABG (5) Diabetes mellitus Assessment/Plan stress test today f/u troponin, ekg echocardiogram f/u electrolytes, renal evaluation in process sliding scale dvt prophylaxis. Subjective ROS Limited/Unobtainable: No Constitutional: Reports: no symptoms HEENT: Repors: no symptoms Allergies: Coded Allergies: No Known Allergies (Unverified , 05/07/18) Objective Last 24 Hour Vital Signs Date Time Temp Pulse Resp B/P (MAP) Pulse Ox O2 Delivery O2 Flow Rate FiO2 05/09/18 09:00 Room Air 05/09/18 08:54 132/86 05/09/18 08:00 98.1 90 21 132/86 (101) 95 98.1 05/09/18 08:00 83 05/09/18 04:00 82 05/09/18 04:00 98.0 85 20 117/78 (91) 96 98.0 05/09/18 00:00 78 05/09/18 00:00 97.0 73 20 120/80 (93) 98 97.0 05/08/18 21:00 Room Air 05/08/18 20:00 78 05/08/18 20:00 97.0 78 20 121/81 (94) 96 97.0 05/08/18 19:25 83 20 Room Air 21 05/08/18 18:31 97.3 05/08/18 17:58 97.3 05/08/18 16:30 79 05/08/18 16:00 97.3 77 20 113/56 (75) 90 97.3 05/08/18 12:00 97.3 74 20 117/64 (81) 93 97.3 05/08/18 12:00 80 Intake and Output 05/08/18 05/09/18 19:00 07:00 Intake Total 600 ml Balance 600 ml Intake Oral 600 ml # Voids 2 General Appearance: WD/WN HEENT: normocephalic, atraumatic Respiratory/Chest: chest wall non-tender, lungs clear Cardiovascular: normal peripheral pulses, normal rate, regular rhythm Abdomen: normal bowel sounds, soft, non tender, no organomegaly 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 Complete 05/07/18 17:30 Rectum VRE Culture - Final NO VANCOMYCIN RESISTANT ENTEROCOCCUS ... Complete 05/07/18 17:30 Rectum - Final NO CARBAPENEM-RESISTANT ENTEROBACTERI... Complete Laboratory Tests 05/09/18 07:20: White Blood Count 9.3, Red Blood Count 5.17, Hemoglobin 16.7, Hematocrit 46.7, Mean Corpuscular Volume 90, Mean Corpuscular Hemoglobin 32.4H, Mean Corpuscular Hemoglobin Concent 35.8, Red Cell Distribution Width 10.8L, Platelet Count 321, Mean Platelet Volume 6.1L, Neutrophils (%) (Auto) 52.9, Lymphocytes (%) (Auto) 35.0, Monocytes (%) (Auto) 7.7, Eosinophils (%) (Auto) 3.3H, Basophils (%) (Auto ) 1.1, Sodium Level 138, Potassium Level 4.7, Chloride Level 104, Carbon Dioxide Level 25, Anion Gap 10, Blood Urea Nitrogen 27H, Creatinine 1.0, Estimat Glomerular Filtration Rate > 60, Glucose Level 138H, Calcium Level 9.4, Troponin I 0.000 Current Medications Medications (Trade) Dose Ordered Sig/[place] Route PRN Reason Start Time Stop Time Status Last Admin Dose Admin Acetaminophen (Tylenol) 650 mg Q4H PRN ORAL FEVER 05/07/18 11:45 06/06/18 11:44 Albuterol/ Ipratropium (Albuterol/ Ipratropium) 3 ml Q4H PRN HHN Shortness of Breath 05/07/18 11:45 05/12/18 11:44 Aspirin (Ecotrin) 81 mg DAILY ORAL 05/08/18 09:00 06/07/18 08:59 05/09/18 08:54 Atorvastatin Calcium (Lipitor) 40 mg BEDTIME ORAL 05/07/18 21:00 06/06/18 20:59 05/08/18 21:02 Citalopram Hydrobromide (celeXA) 40 mg DAILY ORAL 05/08/18 09:00 06/07/18 08:59 05/09/18 08:54 Dextrose (Dextrose 50%) 25 ml STAT PRN IV Hypoglycemia 05/07/18 11:45 06/06/18 11:44 Dextrose (Dextrose 50%) 50 ml STAT PRN IV Hypoglycemia 05/07/18 11:45 06/06/18 11:44 Diltiazem HCl (Cardizem) 10 mg Q1H PRN IV heart rate more than 120, 05/07/18 11:45 06/06/18 11:44 Enalaprilat (Vasotec) 2.5 mg Q6H PRN IV sbp more than 160 05/07/18 11:45 06/06/18 11:44 Gabapentin (Neurontin) 600 mg EVERY 8 HOURS ORAL 05/07/18 14:00 06/06/18 13:59 05/09/18 05:56 Heparin Sodium (Porcine) (Heparin 5000 units/ml) 5,000 units EVERY 8 HOURS SUBQ 05/07/18 14:00 06/06/18 13:59 05/09/18 05:57 Insulin Aspart (NovoLOG) BEFORE MEALS AND HS SUBQ 05/07/18 16:30 06/06/18 16:29 05/09/18 06:04 Ketorolac Tromethamine (Toradol 30mg) 30 mg Q6H PRN IV moderate pain ( 4-6) 05/07/18 11:45 05/12/18 11:44 Lisinopril (Prinivil) 20 mg BID ORAL 05/09/18 09:00 06/08/18 08:59 Lorazepam (Ativan 2mg/ml 1ml) 1 mg Q4H PRN IV For Anxiety 05/07/18 17:04 05/14/18 17:03 05/09/18 09:45 Mirtazapine (Remeron) 15 mg BEDTIME ORAL 05/07/18 21:00 06/06/18 20:59 05/08/18 21:02 Morphine Sulfate (Morphine Sulfate) 2 mg Q4H PRN IVP severe Pain (Pain Scale 7-10) 05/07/18 11:45 05/14/18 11:44 05/09/18 06:02 Nitroglycerin (Ntg) 0.4 mg Q5M PRN SL Prn Chest Pain 05/07/18 11:45 06/06/18 11:44 Ondansetron HCl (Zofran) 4 mg Q6H PRN IVP Nausea & Vomiting 05/07/18 11:45 06/06/18 11:44 Pantoprazole (Protonix) 40 mg DAILY ORAL 05/08/18 09:00 06/07/18 08:59 05/09/18 08:54 Polyethylene Glycol (Miralax) 17 gm DAILYPRN PRN ORAL Constipation 05/07/18 11:45 06/06/18 11:44 Regadenoson (Lexiscan) 0.4 mg ONCE ONCE IV 05/09/18 14:30 05/09/18 14:31 Temazepam (Restoril) 15 mg HSPRN PRN ORAL Insomnia 05/07/18 11:45 05/14/18 11:44 Per Turcios MD May 09, 2018 11:49
[2018-05-09 12:00] VITALS: BP 131/87
--- NOTE | 2018-05-09 12:55 | Nephrology Progress Note ---
Assessment/Plan Assessment 1. Prerenal azotemia and dehydration. 2. Rule out diabetic nephropathy, which is unlikely since the patient does not have any protein in the urine. 3. Uncontrolled diabetes. 4. Acute coronary syndrome. 5. History of CABG. 6. Uncontrolled hypertension. Plan continue current medication monitoring renal function avoid NSAID replace electrolyte as need it Subjective Subjective no acute events his cp improved Objective Objective Last 24 Hour Vital Signs Date Time Temp Pulse Resp B/P (MAP) Pulse Ox O2 Delivery O2 Flow Rate FiO2 05/09/18 12:00 98.5 92 20 131/87 (102) 96 98.5 05/09/18 09:00 Room Air 05/09/18 08:54 132/86 05/09/18 08:00 98.1 90 21 132/86 (101) 95 98.1 05/09/18 08:00 83 05/09/18 04:00 82 05/09/18 04:00 98.0 85 20 117/78 (91) 96 98.0 05/09/18 00:00 78 05/09/18 00:00 97.0 73 20 120/80 (93) 98 97.0 05/08/18 21:00 Room Air 05/08/18 20:00 78 05/08/18 20:00 97.0 78 20 121/81 (94) 96 97.0 05/08/18 19:25 83 20 Room Air 21 05/08/18 18:31 97.3 05/08/18 17:58 97.3 05/08/18 16:30 79 05/08/18 16:00 97.3 77 20 113/56 (75) 90 97.3 Intake and Output 05/08/18 05/09/18 19:00 07:00 Intake Total 600 ml Balance 600 ml Intake Oral 600 ml # Voids 2 Laboratory Tests 05/09/18 07:20: White Blood Count 9.3, Red Blood Count 5.17, Hemoglobin 16.7, Hematocrit 46.7, Mean Corpuscular Volume 90, Mean Corpuscular Hemoglobin 32.4H, Mean Corpuscular Hemoglobin Concent 35.8, Red Cell Distribution Width 10.8L, Platelet Count 321, Mean Platelet Volume 6.1L, Neutrophils (%) (Auto) 52.9, Lymphocytes (%) (Auto) 35.0, Monocytes (%) (Auto) 7.7, Eosinophils (%) (Auto) 3.3H, Basophils (%) (Auto ) 1.1, Sodium Level 138, Potassium Level 4.7, Chloride Level 104, Carbon Dioxide Level 25, Anion Gap 10, Blood Urea Nitrogen 27H, Creatinine 1.0, Estimat Glomerular Filtration Rate > 60, Glucose Level 138H, Calcium Level 9.4, Troponin I 0.000 Height (Feet): 6 Height (Inches): 2.00 Weight (Pounds): 280 Objective HEAD AND NECK: No JVP. No LAD. No thyromegaly. Extraocular movement intact. Pupils are reactive to light and accommodation. LUNGS: Clear to auscultation. CARDIAC: Regular rate and rhythm. S1 and S2. No murmur. No rub. ABDOMEN: Soft, nontender, and nondistended. EXTREMITIES: Trace edema. No clubbing or cyanosis. Wendy Lu MD May 09, 2018 12:55
--- NOTE | 2018-05-09 13:50 | General Progress Note ---
Assessment/Plan Problem List: (1) SOB (shortness of breath) ICD Codes: R06.02 - Shortness of breath SNOMED: 610751835 (2) Diabetes ICD Codes: E11.9 - Type 2 diabetes mellitus without complications SNOMED: 10829387 (3) Obese ICD Codes: E66.9 - Obesity, unspecified SNOMED: 054023251, 370940942 (4) ACS (acute coronary syndrome) ICD Codes: I24.9 - Acute ischemic heart disease, unspecified SNOMED: 736121031 (5) Diabetes mellitus ICD Codes: E11.9 - Type 2 diabetes mellitus without complications SNOMED: 32815972 (6) Hypertension ICD Codes: I10 - Essential (primary) hypertension SNOMED: 00627137 (7) Chest pain ICD Codes: R07.9 - Chest pain, unspecified SNOMED: 77812413 Status: stable, progressing Assessment/Plan bp bs pain control cbc bmp am stress test Subjective Constitutional: Reports: weakness Allergies: Coded Allergies: No Known Allergies (Unverified , 05/07/18) All Systems: reviewed and negative except above Subjective sl cp Objective Last 24 Hour Vital Signs Date Time Temp Pulse Resp B/P (MAP) Pulse Ox O2 Delivery O2 Flow Rate FiO2 05/09/18 12:00 98.5 92 20 131/87 (102) 96 98.5 05/09/18 09:00 Room Air 05/09/18 08:54 132/86 05/09/18 08:00 98.1 90 21 132/86 (101) 95 98.1 05/09/18 08:00 83 05/09/18 04:00 82 05/09/18 04:00 98.0 85 20 117/78 (91) 96 98.0 05/09/18 00:00 78 05/09/18 00:00 97.0 73 20 120/80 (93) 98 97.0 05/08/18 21:00 Room Air 05/08/18 20:00 78 05/08/18 20:00 97.0 78 20 121/81 (94) 96 97.0 05/08/18 19:25 83 20 Room Air 21 05/08/18 18:31 97.3 05/08/18 17:58 97.3 05/08/18 16:30 79 05/08/18 16:00 97.3 77 20 113/56 (75) 90 97.3 Intake and Output 05/08/18 05/09/18 19:00 07:00 Intake Total 600 ml Balance 600 ml Intake Oral 600 ml # Voids 2 Laboratory Tests 05/09/18 07:20: White Blood Count 9.3, Red Blood Count 5.17, Hemoglobin 16.7, Hematocrit 46.7, Mean Corpuscular Volume 90, Mean Corpuscular Hemoglobin 32.4H, Mean Corpuscular Hemoglobin Concent 35.8, Red Cell Distribution Width 10.8L, Platelet Count 321, Mean Platelet Volume 6.1L, Neutrophils (%) (Auto) 52.9, Lymphocytes (%) (Auto) 35.0, Monocytes (%) (Auto) 7.7, Eosinophils (%) (Auto) 3.3H, Basophils (%) (Auto ) 1.1, Sodium Level 138, Potassium Level 4.7, Chloride Level 104, Carbon Dioxide Level 25, Anion Gap 10, Blood Urea Nitrogen 27H, Creatinine 1.0, Estimat Glomerular Filtration Rate > 60, Glucose Level 138H, Calcium Level 9.4, Troponin I 0.000 Height (Feet): 6 Height (Inches): 2.00 Weight (Pounds): 280 General Appearance: alert EENT: normal ENT inspection Neck: normal alignment Cardiovascular: normal peripheral pulses, normal rate, regular rhythm Respiratory/Chest: chest wall non-tender, lungs clear, normal breath sounds Abdomen: normal bowel sounds, non tender, soft Extremities: normal inspection Edema: no edema noted Arm (L), no edema noted Arm (R), no edema noted Leg (L), no edema noted Leg (R), no edema noted Pedal (L), no edema noted Pedal (R), no edema noted Generalized Neurologic: responsive, motor weakness Skin: normal pigmentation, warm/dry Elliot Moran DO May 09, 2018 13:50
[2018-05-09] MEDS ORDERED: Lexiscan 0.4mg/5ml syringe IV ONE (14:30)
--- NOTE | 2018-05-09 15:03 | Diagnostic Imaging Report ---
Indication: chest pain Technique: The study was conducted under the supervision of a visual developer. lexiscan (regadenoson) infusion over 10 seconds followed by intravenous administration of 32.2 mCi of technetium 99m Myoview was performed. Three plane SPECT imaging of the heart was then performed. A resting study was performed as part of the one-day protocol with 10.4 mCi of technetium 99m myoview injected intravenously at that time. Three plane SPECT imaging of the heart was obtained. Comparison: None Clinical data: 1. Clinical response: Non ischemic 2. Electrocardiographic response: Non ischemic Findings: The myocardial perfusion scan demonstrates no fixed or reversible perfusion defects. Left ventricular ejection fraction is estimated at 71%. IMPRESSION: Negative myocardial perfusion scan
[2018-05-09 16:00] VITALS: BP 127/72
[2018-05-09 20:00] VITALS: BP 104/74
[2018-05-09] MEDS: Atorvastatin 20mg tab ORAL SCH (21:14)
--- NOTE | 2018-05-09 22:02 | Cardiology Progress Note ---
Assessment/Plan Assessment/Plan 1. Atypical chest pain, non-ischemic myocardial perfusion imaging, normal LV systolic function with no WMA. 2. Sinus tachycardia, resolved, continue metoprolol. 3. History of diabetes mellitus, continue on aspirin and statins. 4. History of hypertension, resume metoprolol and amlodipine. Subjective Subjective Sinus rhythm at 88. s/p nuclear stress test today. Objective Last 24 Hour Vital Signs Date Time Temp Pulse Resp B/P (MAP) Pulse Ox O2 Delivery O2 Flow Rate FiO2 05/09/18 20:19 92 18 Room Air 21 05/09/18 17:31 127/72 05/09/18 16:00 98.1 88 20 127/72 (90) 97 98.1 05/09/18 16:00 87 05/09/18 12:00 92 05/09/18 12:00 98.5 92 20 131/87 (102) 96 98.5 05/09/18 09:01 90 20 Room Air 21 05/09/18 09:00 Room Air 05/09/18 08:54 132/86 05/09/18 08:00 98.1 90 21 132/86 (101) 95 98.1 05/09/18 08:00 83 05/09/18 04:00 82 05/09/18 04:00 98.0 85 20 117/78 (91) 96 98.0 05/09/18 00:00 78 05/09/18 00:00 97.0 73 20 120/80 (93) 98 97.0 Intake and Output 05/08/18 05/09/18 19:00 07:00 Intake Total 600 ml Balance 600 ml Intake Oral 600 ml # Voids 2 2D Echo: LVEF 55%, Trace MR Laboratory Tests Test 05/09/18 07:20 White Blood Count 9.3 K/UL (4.8-10.8) Red Blood Count 5.17 M/UL (4.70-6.10) Hemoglobin 16.7 G/DL (14.2-18.0) Hematocrit 46.7 % (42.0-52.0) Mean Corpuscular Volume 90 FL (80-99) Mean Corpuscular Hemoglobin 32.4 PG (27.0-31.0) H Mean Corpuscular Hemoglobin Concent 35.8 G/DL (32.0-36.0) Red Cell Distribution Width 10.8 % (11.6-14.8) L Platelet Count 321 K/UL (150-450) Mean Platelet Volume 6.1 FL (6.5-10.1) L Neutrophils (%) (Auto) 52.9 % (45.0-75.0) Lymphocytes (%) (Auto) 35.0 % (20.0-45.0) Monocytes (%) (Auto) 7.7 % (1.0-10.0) Eosinophils (%) (Auto) 3.3 % (0.0-3.0) H Basophils (%) (Auto) 1.1 % (0.0-2.0) Sodium Level 138 MMOL/L (136-145) Potassium Level 4.7 MMOL/L (3.5-5.1) Chloride Level 104 MMOL/L (98-107) Carbon Dioxide Level 25 MMOL/L (21-32) Anion Gap 10 mmol/L (5-15) Blood Urea Nitrogen 27 mg/dL (7-18) H Creatinine 1.0 MG/DL (0.55-1.30) Estimat Glomerular Filtration Rate > 60 mL/min (>60) Glucose Level 138 MG/DL (74-106) H Calcium Level 9.4 MG/DL (8.5-10.1) Troponin I 0.000 ng/mL (0.000-0.056) Microbiology Date/Time Source Procedure Growth Status 05/07/18 17:30 Nasal Nares MRSA Culture - Final NO METHICILLIN RESISTANT STAPH AUREUS... Complete 05/07/18 17:30 Rectum VRE Culture - Final NO VANCOMYCIN RESISTANT ENTEROCOCCUS ... Complete 05/07/18 17:30 Rectum - Final NO CARBAPENEM-RESISTANT ENTEROBACTERI... Complete Objective HEENT: Atraumatic and normocephalic. ENT, pupils are equal, round, and reactive to light and accommodation. Extraocular muscles intact. Dry mucosal membranes. CARDIOVASCULAR: Normal S1 and S2. Regular rate and rhythm. Tachycardic. No murmurs, gallops, or rubs. PMI is at fourth intercostal space in the midclavicular line. LUNGS: Clear to auscultation bilaterally. ABDOMEN: Soft, nontender, nondistended. No hepatosplenomegaly. Positive bowel sounds. EXTREMITIES: No evidence of edema, clubbing, or cyanosis. David,Enrico MD May 09, 2018 22:02
[2018-05-10] VITALS: BP 102/60
[2018-05-10] MEDS: LORazepam Inj 2mg/ml 1ml IV PRN ×3 (01:09→11:49)
[2018-05-10 04:00] VITALS: BP 104/70
[2018-05-10] MEDS: Morphine Sulfate 2mg/ml Inj IVP PRN ×3 (05:36→14:07)
[2018-05-10] MEDS: Heparin 5000 units/ml inj SUBQ SCH ×2 (05:40→14:07)
[2018-05-10] MEDS: NovoLOG Insulin Flexpen SUBQ SCH ×2 (05:48→11:44)
[2018-05-10 07:23] LABS: BASOPHILS % (AUTO) 0.9 % (0.0-2.0); EOSINOPHILS % (AUTO) 3.7 % (0.0-3.0); HEMATOCRIT 46.3 % (42.0-52.0); LYMPHOCYTES % (AUTO) 34.8 % (20.0-45.0); MEAN CORPUSCULAR VOLUME 91 FL (80-99); MONOCYTES % (AUTO) 7.9 % (1.0-10.0); NEUTROPHILS % (AUTO) 52.8 % (45.0-75.0); PLATELET COUNT 308 K/UL (150-450); RED BLOOD COUNT 5.09 M/UL (4.70-6.10); RED CELL DISTRIBUTION WIDTH 10.8 % (11.6-14.8); WHITE BLOOD COUNT 9.1 K/UL (4.8-10.8)
[2018-05-10 07:29] LABS: ANION GAP 16 mmol/L (5-15); BLOOD UREA NITROGEN 30 mg/dL (7-18); CALCIUM 9.4 MG/DL (8.5-10.1); CARBON DIOXIDE 26 MMOL/L (21-32); CHLORIDE 102 MMOL/L (98-107); CREATININE 1.1 MG/DL (0.55-1.30); POTASSIUM 4.5 MMOL/L (3.5-5.1); SODIUM 136 MMOL/L (136-145)
--- NOTE | 2018-05-10 07:31 | Pulmonology Progress Note ---
Assessment/Plan Assessment/Plan ASSESSMENT Atypical chest pain Hypertension Diabetes mellitus History of CAD and CABG nicotine dependency with withdrawal Obesity Hyperlipidemia PLAN OF CARE telemetry serial troponin negative, EKG no acute ischemic changes patient was ruled out for acute NH cardio follows lipid panel stable O2 and pulm toilet prn, stable pulse ox on RA CXR negative venous duplex no acute DVT ECHO with pEF 65% CTA of the chest-no PE lipid panel stable antiplatelet/with ASA and statin continue activities counselor on tobacco cessation started Nicotine patch BP management with multiply antiHTN regimen , including BB, CCB and SHAWN inhibitor BP stable BS management with SSI prn per materials tech, chest pain atypical, given its character however in view of CAD and CABG , Cardiolite stress test was done- negative calculated EF 71% dc plan per cardio clearance case discussed and evaluated by supervising physician Subjective Allergies: Coded Allergies: No Known Allergies (Unverified , 05/07/18) Subjective chest pain last night occasional SOB stress test done 05/09 - stable admits to smoking 2 packs/ day Objective Last 24 Hour Vital Signs Date Time Temp Pulse Resp B/P (MAP) Pulse Ox O2 Delivery O2 Flow Rate FiO2 05/10/18 04:00 97.6 79 20 104/70 (81) 98 97.6 05/10/18 03:44 79 05/10/18 00:00 98.1 81 20 102/60 (74) 97 98.1 05/09/18 23:45 81 05/09/18 21:00 Room Air 05/09/18 20:19 92 18 Room Air 21 05/09/18 20:17 90 05/09/18 20:17 90 05/09/18 20:00 98.0 95 20 104/74 (84) 94 98.0 05/09/18 17:31 127/72 05/09/18 16:00 98.1 88 20 127/72 (90) 97 98.1 05/09/18 16:00 87 05/09/18 12:00 92 05/09/18 12:00 98.5 92 20 131/87 (102) 96 98.5 05/09/18 09:01 90 20 Room Air 21 05/09/18 09:00 Room Air 05/09/18 08:54 132/86 05/09/18 08:00 98.1 90 21 132/86 (101) 95 98.1 05/09/18 08:00 83 Intake and Output 05/09/18 05/10/18 19:00 07:00 Intake Total 1120 ml Balance 1120 ml Intake Oral 1120 ml # Voids 2 General Appearance: no acute distress HEENT: normocephalic, atraumatic, anicteric, mucous membranes moist Respiratory/Chest: no respiratory distress, no accessory muscle use, decreased breath sounds Cardiovascular: tachycardia - ST 109 Abdomen: normal bowel sounds, soft, non tender - obezse Extremities: no edema Skin: rash Neurologic/Psychiatric: no motor/sensory deficits, alert, oriented x 3, responsive Musculoskeletal: normal muscle bulk Microbiology Date/Time Source Procedure Growth Status 05/07/18 17:30 Nasal Nares MRSA Culture - Final NO METHICILLIN RESISTANT STAPH AUREUS... Complete 05/07/18 17:30 Rectum VRE Culture - Final NO VANCOMYCIN RESISTANT ENTEROCOCCUS ... Complete 05/07/18 17:30 Rectum - Final NO CARBAPENEM-RESISTANT ENTEROBACTERI... Complete Laboratory Tests 05/10/18 06:35: White Blood Count 9.1, Red Blood Count 5.09, Hemoglobin 16.0, Hematocrit 46.3, Mean Corpuscular Volume 91, Mean Corpuscular Hemoglobin 31.3H, Mean Corpuscular Hemoglobin Concent 34.4, Red Cell Distribution Width 10.8L, Platelet Count 308, Mean Platelet Volume 6.1L, Neutrophils (%) (Auto) 52.8, Lymphocytes (%) (Auto) 34.8, Monocytes (%) (Auto) 7.9, Eosinophils (%) (Auto) 3.7H, Basophils (%) (Auto ) 0.9, Sodium Level [Pending], Potassium Level [Pending], Chloride Level [ Pending], Carbon Dioxide Level [Pending], Blood Urea Nitrogen [Pending], Creatinine [Pending], Estimat Glomerular Filtration Rate [Pending], Glucose Level [Pending], Calcium Level [Pending] Current Medications Medications (Trade) Dose Ordered Sig/[place] Route PRN Reason Start Time Stop Time Status Last Admin Dose Admin Acetaminophen (Tylenol) 650 mg Q4H PRN ORAL FEVER 05/07/18 11:45 06/06/18 11:44 Albuterol/ Ipratropium (Albuterol/ Ipratropium) 3 ml Q4H PRN HHN Shortness of Breath 05/07/18 11:45 05/12/18 11:44 Aspirin (Ecotrin) 81 mg DAILY ORAL 05/08/18 09:00 06/07/18 08:59 05/09/18 08:54 Atorvastatin Calcium (Lipitor) 40 mg BEDTIME ORAL 05/07/18 21:00 06/06/18 20:59 05/09/18 21:14 Citalopram Hydrobromide (celeXA) 40 mg DAILY ORAL 05/08/18 09:00 06/07/18 08:59 05/09/18 08:54 Dextrose (Dextrose 50%) 25 ml STAT PRN IV Hypoglycemia 05/07/18 11:45 06/06/18 11:44 Dextrose (Dextrose 50%) 50 ml STAT PRN IV Hypoglycemia 05/07/18 11:45 06/06/18 11:44 Diltiazem HCl (Cardizem) 10 mg Q1H PRN IV heart rate more than 120, 05/07/18 11:45 06/06/18 11:44 Enalaprilat (Vasotec) 2.5 mg Q6H PRN IV sbp more than 160 05/07/18 11:45 06/06/18 11:44 Gabapentin (Neurontin) 600 mg EVERY 8 HOURS ORAL 05/07/18 14:00 06/06/18 13:59 05/10/18 05:37 Heparin Sodium (Porcine) (Heparin 5000 units/ml) 5,000 units EVERY 8 HOURS SUBQ 05/07/18 14:00 06/06/18 13:59 05/10/18 05:40 Insulin Aspart (NovoLOG) BEFORE MEALS AND HS SUBQ 05/07/18 16:30 06/06/18 16:29 05/10/18 05:48 Ketorolac Tromethamine (Toradol 30mg) 30 mg Q6H PRN IV moderate pain ( 4-6) 05/07/18 11:45 05/12/18 11:44 Lisinopril (Prinivil) 20 mg BID ORAL 05/09/18 09:00 06/08/18 08:59 05/09/18 17:31 Lorazepam (Ativan 2mg/ml 1ml) 1 mg Q4H PRN IV For Anxiety 05/07/18 17:04 05/14/18 17:03 05/10/18 06:46 Metoprolol Succinate (Toprol XL) 25 mg DAILY ORAL 05/10/18 09:00 06/09/18 08:59 Mirtazapine (Remeron) 15 mg BEDTIME ORAL 05/07/18 21:00 06/06/18 20:59 05/09/18 21:14 Morphine Sulfate (Morphine Sulfate) 2 mg Q4H PRN IVP severe Pain (Pain Scale 7-10) 05/07/18 11:45 05/14/18 11:44 05/10/18 05:36 Nitroglycerin (Ntg) 0.4 mg Q5M PRN SL Prn Chest Pain 05/07/18 11:45 06/06/18 11:44 Ondansetron HCl (Zofran) 4 mg Q6H PRN IVP Nausea & Vomiting 05/07/18 11:45 06/06/18 11:44 Pantoprazole (Protonix) 40 mg DAILY ORAL 05/08/18 09:00 06/07/18 08:59 05/09/18 08:54 Polyethylene Glycol (Miralax) 17 gm DAILYPRN PRN ORAL Constipation 05/07/18 11:45 06/06/18 11:44 Temazepam (Restoril) 15 mg HSPRN PRN ORAL Insomnia 05/07/18 11:45 05/14/18 11:44 Bonita Duran NP May 10, 2018 07:31
[2018-05-10 08:00] VITALS: BP 132/85
[2018-05-10] MEDS: Aspirin EC 81mg tab ORAL SCH (08:30)
[2018-05-10] MEDS: Citalopram Hydrobromide 10mg Tab ORAL SCH (08:30)
[2018-05-10] MEDS: Lisinopril 20mg tab ORAL SCH (08:34)
[2018-05-10] MEDS ORDERED: Metoprolol Succinate XL 25mg tab ORAL SCH (09:00)
--- NOTE | 2018-05-10 09:30 | General Progress Note ---
Assessment/Plan Problem List: (1) SOB (shortness of breath) ICD Codes: R06.02 - Shortness of breath SNOMED: 459132483 (2) Diabetes ICD Codes: E11.9 - Type 2 diabetes mellitus without complications SNOMED: 49477618 (3) Obese ICD Codes: E66.9 - Obesity, unspecified SNOMED: 500111563, 101213068 (4) ACS (acute coronary syndrome) ICD Codes: I24.9 - Acute ischemic heart disease, unspecified SNOMED: 668622302 (5) Diabetes mellitus ICD Codes: E11.9 - Type 2 diabetes mellitus without complications SNOMED: 36386444 (6) Hypertension ICD Codes: I10 - Essential (primary) hypertension SNOMED: 62715866 (7) Chest pain ICD Codes: R07.9 - Chest pain, unspecified SNOMED: 25221085 Status: stable, progressing Assessment/Plan bp bs pain control cbc bmp am cardio f/u Subjective Constitutional: Reports: weakness Allergies: Coded Allergies: No Known Allergies (Unverified , 05/07/18) All Systems: reviewed and negative except above Subjective sl chest pain sleepy Objective Last 24 Hour Vital Signs Date Time Temp Pulse Resp B/P (MAP) Pulse Ox O2 Delivery O2 Flow Rate FiO2 05/10/18 09:00 Room Air 05/10/18 08:34 132/85 05/10/18 08:33 93 132/85 05/10/18 08:00 97.9 94 20 132/85 (101) 93 97.9 05/10/18 04:00 97.6 79 20 104/70 (81) 98 97.6 05/10/18 03:44 79 05/10/18 00:00 98.1 81 20 102/60 (74) 97 98.1 05/09/18 23:45 81 05/09/18 21:00 Room Air 05/09/18 20:19 92 18 Room Air 21 05/09/18 20:17 90 05/09/18 20:17 90 05/09/18 20:00 98.0 95 20 104/74 (84) 94 98.0 05/09/18 17:31 127/72 05/09/18 16:00 98.1 88 20 127/72 (90) 97 98.1 05/09/18 16:00 87 05/09/18 12:00 92 8/31/18 12:00 98.5 92 20 131/87 (102) 96 98.5 Intake and Output 05/09/18 05/10/18 19:00 07:00 Intake Total 1120 ml Balance 1120 ml Intake Oral 1120 ml # Voids 2 Laboratory Tests 05/10/18 06:35: White Blood Count 9.1, Red Blood Count 5.09, Hemoglobin 16.0, Hematocrit 46.3, Mean Corpuscular Volume 91, Mean Corpuscular Hemoglobin 31.3H, Mean Corpuscular Hemoglobin Concent 34.4, Red Cell Distribution Width 10.8L, Platelet Count 308, Mean Platelet Volume 6.1L, Neutrophils (%) (Auto) 52.8, Lymphocytes (%) (Auto) 34.8, Monocytes (%) (Auto) 7.9, Eosinophils (%) (Auto) 3.7H, Basophils (%) (Auto ) 0.9, Sodium Level 136, Potassium Level 4.5, Chloride Level 102, Carbon Dioxide Level 26, Anion Gap 16H, Blood Urea Nitrogen 30H, Creatinine 1.1, Estimat Glomerular Filtration Rate > 60, Glucose Level 162H, Calcium Level 9.4 Height (Feet): 6 Height (Inches): 2.00 Weight (Pounds): 280 General Appearance: lethargic EENT: normal ENT inspection Neck: normal alignment Cardiovascular: normal peripheral pulses, normal rate, regular rhythm Respiratory/Chest: chest wall non-tender, lungs clear, normal breath sounds Abdomen: normal bowel sounds, non tender, soft Extremities: normal inspection Edema: no edema noted Arm (L), no edema noted Arm (R), no edema noted Leg (L), no edema noted Leg (R), no edema noted Pedal (L), no edema noted Pedal (R), no edema noted Generalized Neurologic: motor weakness Skin: normal pigmentation, warm/dry Elliot Moran DO May 10, 2018 09:30
[2018-05-10 12:00] VITALS: BP 128/81
--- NOTE | 2018-05-13 12:11 | Discharge Summary ---
Discharge Summary Discharge Summary _ DATE OF ADMISSION: 05/07/2018 DATE OF DISCHARGE: 05/10/2018 REASON FOR ADMISSION: 62 years old male with past medical history of hypertension, diabetes, coronary artery disease with a history of CABG, ETOH abuse, presented with a moderate to severe heavy substernal chest pressure at the right side for 12-16 hours. In the morning pain occurred at the left arm as well. Patient presented to emergency room for evaluation. Patient currently in Drug and Alcohol Rehabilitation Program. Upon evaluation vital signs revealed mild tachycardia 102 and elevated blood pressure 151/97. Pulse oximetry was stable on room air. Troponin negative. EKG revealed normal sinus rhythm, no acute ischemic changes. Patient presented with symptoms concerning for coronary ischemia. Given patient YAQUELIN score of 4 and HEART score of 5, patient was admitted for further management with diagnoses chest pain, rule out acute coronary syndrome, diabetes mellitus, hypertension, coronary artery disease, COPD. CONSULTANTS: software firmware engineer Dr. Hernandez pulmonary Dr. Turcios suede brusher [facility] COURSE: Patient admitted to telemetry floor. Serial troponin were negative. EKG revealed no acute ischemic changes. Therefore patient was ruled out for acute myocardial infarction. Forest Management Professor closely followed. Lipid panel was stable. Supplemental oxygen provided as needed to keep pulse oximetry above 92%. Pulmonary toilet was on standby as needed. Pulse oximetry was stable on room air. Chest x-ray revealed no acute cardiopulmonary pathology. Venous duplex bilateral lower extremity revealed no evidence of acute DVT. Echocardiogram revealed preserved ejection fraction 55%. CT of the chest revealed no evidence of PE. Patient was on antiplatelet therapy with aspirin. Statin was continued. Patient was counseled on tobacco cessation. Patient started on Nicotine patch. Blood pressure was managed with multiply regimen of antihypertensive medications , including beta nguyen, calcium channel nguyen, and SHAWN inhibitor. Blood pressure was stable with current regimen. Blood sugar was managed with sliding scale of insulin as needed. Per software firmware engineer , chest pain was atypical given its character. However in view of coronary artery disease with CABG, Cardiolite stress test was done. Stress test was nonischemic with calculated ejection fraction 71%. Per public relations account executive , patient likely had costochondritis. Pain management was addressed, and pain was controlled. Forest Management Professor cleared for discharge. Patient was discharged to assisted living to continue with Alcohol and Drug Rehabilitation Program . Patient was counseled to complete the program and continue abstinence from ETOH. FINAL DIAGNOSES: Atypical chest pain Costochondritis Hypertension Diabetes mellitus History of coronary artery disease with CABG Nicotine dependency with withdrawal Obesity Hyperlipidemia History of ETOH abuse DISCHARGE MEDICATIONS: See Medication Reconciliation list. DISCHARGE INSTRUCTIONS: Patient was discharged to assisted living to continue with Alcohol/[facility] Rehabilitation program. Bonita Duran NP May 13, 2018 12:11
== END 2018-05-10 15:45 | disposition short-term general hospital (02) | DRG 206 ==
LOC: EMR 09:30 → 2E 10:05 → EDBEDREQ 10:19
DX: M94.0 Chondrocostal junction syndrome [Tietze] (principal); F17.203 Nicotine dependence unspecified, with withdrawal; R07.89 Other chest pain; I10 Essential (primary) hypertension; I25.10 Atherosclerotic heart disease of native coronary artery without angina pectoris; Z95.1 Presence of aortocoronary bypass graft; E66.9 Obesity, unspecified; E78.5 Hyperlipidemia, unspecified; F10.21 Alcohol dependence, in remission; J44.9 Chronic obstructive pulmonary disease, unspecified; Z79.4 Long term (current) use of insulin; I16.0 Hypertensive urgency; E86.0 Dehydration; R06.02 Shortness of breath; E11.40 Type 2 diabetes mellitus with diabetic neuropathy, unspecified; Z79.84 Long term (current) use of oral hypoglycemic drugs; Z79.82 Long term (current) use of aspirin; E11.65 Type 2 diabetes mellitus with hyperglycemia; I25.2 Old myocardial infarction; F32.9 Major depressive disorder, single episode, unspecified; K21.9 Gastro-esophageal reflux disease without esophagitis; R00.0 Tachycardia, unspecified
CPT/HCPCS: 36415; 71045; 71275; 78452; 80048; 80053; 80061; 80307; 81001; 82962; 83880; 84443; 84484; 85025; 85610; 85730; 86140; 87081; 93005; 93017; 93306; 93970; 94664; 99291; J1815; J2785

== ENCOUNTER 2018-06-03 03:07 | Emergency (ER) | payer BC ==
[~2018-06-03] VITALS: Ht 182.9 cm; Wt 129.3 kg
[~2018-06-03 03:07] MED LIST: AMLODIPINE BESY10 MG ORAL; ASPIR 8181 MG ORAL; CELEXA20 MG ORAL; DIPHENHYDRAMINE25 M1 ORAL; GABAPENTIN600 MG ORAL; IBUPROFEN600 MG ORAL; LIPITOR40 MG ORAL; LISINOPRIL10 MG ORAL; METFORMIN HCL1000 M1 ORAL; METOPROLOL TART50 MG ORAL; MIRTAZAPINE15 M3 ORAL; PROTONIX20 MG ORAL; VITAMIN B-1100 MG ORAL
--- NOTE | 2018-06-03 03:29 | Emergency Room Report ---
History of Present Illness General Chief Complaint: Chest Pain Source: Patient Present Illness HPI This is a 62-year-old male who has a history of CAD with previous CABG. He also a history of out abuse is currently in a rehabilitation center for last 3 months. He presents with chest pain after argument with the staff there. He said that he's been having neuropathy and wanted something for it. The staff refuse to give him any medication. He gets an argument and developed chest pain. Pain is midsternal. No radiation. No nausea no vomiting. Nothing made it better. Nothing made it worse. Denies any other complaint. Denies any alcohol drugs. Patient was admitted here last month and had cardiac workup was negative. Serial troponins negative. EKG unremarkable. He had echocardiogram which was normal. His chemical stress test was also negative. Allergies: Coded Allergies: No Known Allergies (Unverified , 05/07/18) Patient History Past Medical History: see triage record, old chart reviewed Past Surgical History: CABG Pertinent Family History: none Social History: Reports: alcohol use - history of Immunizations: other Reviewed Nursing Documentation: PMH: Agreed; PSxH: Agreed Nursing Documentation-PMH Hx Cardiac Problems: Yes Hx Hypertension: Yes - high cholesterol Hx Diabetes: Yes Hx Cancer: No Hx Gastrointestinal Problems: No Hx Neurological Problems: No Review of Systems Eye: Denies: eye pain, blurred vision ENT: Denies: ear pain, nose congestion, throat swelling Respiratory: Denies: cough, shortness of breath Cardiovascular: Reports: chest pain; Denies: palpitations Gastrointestinal: Denies: abdominal pain, diarrhea, nausea, vomiting Musculoskeletal: Denies: back pain, joint pain Skin: Denies: rash Neurological: Denies: headache, numbness Endocrine: Denies: increased thirst, increased urine Hematologic/Lymphatic: Denies: easy bruising All Other Systems: negative except mentioned in HPI Physical Exam Vital Signs Date Time Temp Pulse Resp B/P (MAP) Pulse Ox O2 Delivery O2 Flow Rate FiO2 06/03/18 03:14 97.8 90 18 194/99 95 Room Air 97.9 vitals with high blood pressure Sp02 EP Interpretation: reviewed, normal General Appearance: well appearing, no apparent distress, alert, obese Head: normocephalic, atraumatic Eyes: bilateral eye PERRL, bilateral eye EOMI ENT: hearing grossly normal, normal pharynx Neck: full range of motion, supple, no meningismus Respiratory: chest non-tender, lungs clear, normal breath sounds Cardiovascular #1: regular rate, rhythm, no murmur Gastrointestinal: normal bowel sounds, non tender, no mass, no organomegaly, no bruit, non-distended Musculoskeletal: back normal, gait/station normal, normal range of motion Neurologic: alert, oriented x3 Psychiatric: mood/affect normal Skin: warm/dry, other - Patient still has EKG cowan on his chest and also tape clifford on his right arm. He said this was from last month. He said that they refuse to give him alcohol to remove it. He did not scrub it off with soap and water. Medical Decision Making Diagnostic Impression: Primary Impression: Chest pain Qualified Codes: R07.9 - Chest pain, unspecified Additional Impressions: Morbid obesity Pain Acute stress reaction ER Course Patient presents with atypical chest pain. He claimed that he had an argument at the [employer] [facility] and developed chest pain. He complained that they called [employer] and dropped him off here. He claimed that the kept his wallet and his money and everything else. He was recently admitted here last month and had workup that were negative for ACS. Troponin here is negative. No evidence of ACS, PE, dissection to name a few. Blood pressure normalized. He still has tape cowan from EKG and IV lines on his arms and chest. Supposedly this been ongoing for a month. This does not make sense. I called the Center but no one picked up. I left a message. He keep asking for pain medication. Explained to him that he is in rehabilitation for drugs and alcohol and I am not comfortable breaking his contract I give him any controlled substance. At this point he got very angry and got up and said he that he is going to leave. I ask him how he is getting back to the place. He said he doesn't know I ask him to stay so they can pick him up. I called and left a message for pickup. He doesn't want to stay and decided to leave. He is otherwise stable and competent to make that decision. Patient refused to give a urine sample. Lab Results Impression labs normal EKG Diagnostic Results Rate: normal Rhythm: NSR ST Segments: no acute changes Rhythm Strip Diag. Results Rhythm Strip Time: 04:17 EP Interpretation: yes Rate: 85 Rhythm: NSR, no PVC's, no ectopy Chest X-Ray Diagnostic Results Chest X-Ray Diagnostic Results : Chest X-Ray Ordered: Yes # of Views/Limited/Complete: 1 View Indication: Chest Pain EP Interpretation: Yes Interpretation: no consolidation, no effusion, no pneumothorax, no acute cardiopulmonary disease Impression: Other - Borderline CM Electronically Signed by: Garrett Mendez MD Last Vital Signs Date Time Temp Pulse Resp B/P (MAP) Pulse Ox O2 Delivery O2 Flow Rate FiO2 06/03/18 03:14 97.8 90 18 194/99 95 Room Air 97.9 Status: improved Disposition: HOME, SELF-CARE Condition: Stable Patient Instructions: Nonspecific Chest Pain Additional Instructions: Follow-up with your doctor in 7 days. Return if worse. GARRETT MENDEZ M.D. Jun 03, 2018 03:29
[2018-06-03 04:21] LABS: BASOPHILS % (AUTO) 1.5 % (0.0-2.0); HEMATOCRIT 45.9 % (42.0-52.0); HEMOGLOBIN 15.4 G/DL (14.2-18.0); LYMPHOCYTES % (AUTO) 40.1 % (20.0-45.0); MEAN CORPUSCULAR VOLUME 91 FL (80-99); MONOCYTES % (AUTO) 9.2 % (1.0-10.0); NEUTROPHILS % (AUTO) 46.2 % (45.0-75.0); PLATELET COUNT 290 K/UL (150-450); RED BLOOD COUNT 5.06 M/UL (4.70-6.10); WHITE BLOOD COUNT 9.3 K/UL (4.8-10.8)
[2018-06-03 04:27] LABS: ANION GAP 11 mmol/L (5-15); BLOOD UREA NITROGEN 33 mg/dL (7-18); CALCIUM 9.4 MG/DL (8.5-10.1); CARBON DIOXIDE 23 MMOL/L (21-32); CHLORIDE 105 MMOL/L (98-107); CREATININE 1.3 MG/DL (0.55-1.30); POTASSIUM 4.8 MMOL/L (3.5-5.1); SODIUM 139 MMOL/L (136-145)
[2018-06-03 04:41] LABS: ALANINE AMINOTRANSFERASE 41 U/L (12-78); ALBUMIN 3.6 G/DL (3.4-5.0); ALKALINE PHOSPHATASE 92 U/L (46-116); ASPARTATE AMINO TRANSFERASE 30 U/L (15-37); BILIRUBIN,TOTAL 0.4 MG/DL (0.2-1.0); CKMB 2.9 NG/ML (0.0-3.6); CREATINE KINASE 208 U/L (26-308)
[2018-06-03] MEDS ORDERED: Ketorolac 30mg Inj IV ONE (04:45)
[2018-06-03 04:50] VITALS: BP 104/74
[2018-06-03 05:31] VITALS: BP 104/74
--- NOTE | 2018-06-03 12:13 | Diagnostic Imaging Report ---
Indication: Chest pain Technique: One view of the chest Comparison: 05/07/2018 Findings: The heart is borderline enlarged. There are median sternotomy sutures. The lungs and pleural spaces are clear. No significant interim change Impression: Cardiomegaly No acute process.
--- NOTE | 2018-06-03 15:47 | Cardiology Report ---
APPROVED REPORT EKG Measurement Heart [id number] AL [id number] [id number] Normal sinus rhythm Normal ECG
== END 2018-06-03 05:00 | disposition home or self-care (01) ==
LOC: EMR 03:21
DX: R07.9 Chest pain, unspecified (principal); E66.01 Morbid (severe) obesity due to excess calories; F43.0 Acute stress reaction; E11.9 Type 2 diabetes mellitus without complications; I10 Essential (primary) hypertension; E78.00 Pure hypercholesterolemia, unspecified; I25.10 Atherosclerotic heart disease of native coronary artery without angina pectoris; Z95.1 Presence of aortocoronary bypass graft
CPT/HCPCS: 36415; 71045; 80053; 82550; 82553; 84484; 85025; 93005; 96374; 99284; G0480; J1885; 80329